=== PATIENT | female | born 1985 | race Caucasian/White ===

== ENCOUNTER 2016-07-24 02:53 | Emergency (ER) | payer OTHER ==
[2016-07-24] MEDS ORDERED: NITROGLYCERIN SL TABS 0.4 MG TAB SUBLINGUAL STA (03:38)
[2016-07-24] MEDS ORDERED: ASPIRIN 81 MG CHEW PO STA (03:38)
--- NOTE | 2016-07-24 03:49 | ED ---
Chest Pain HPI - General Chief Complaint: Chest Pain Stated Complaint: Chest Pain/Stomach Pain Time Seen by Provider: 07/24/16 03:19 Source: patient Mode of arrival: ambulatory Limitations: no limitations - History of Present Illness Initial Comments: This patient is 31-year-old woman who presents with epigastric and left chest pain which is been going on for over a month. The patient states that the pain initially was somewhat intermittent, but now has been constant. She describes it as moderate, aching, without relieving factors, and seems to be worse when she smokes cigarettes. MD Complaint: chest pain Onset/Timin -: month(s) Onset: during rest Pain Location: left chest, epigastric Pain Radiation: none Severity: moderate Quality: aching Consistency: constant Improves With: nothing Worsens With: other (smoking) Treatments Prior to Arrival: none - Related Data Previous Rx's Medication Instructions Recorded Famotidine [Pepcid] 20 mg PO DAILY #14 tablet 07/24/16 Allergies Allergy/AdvReac Type Severity Reaction Status Date / Time No Known Allergies Allergy Verified 07/24/16 03:12 Review of Systems ROS Statement: Those systems with pertinent positive or pertinent negative responses have been documented in the HPI. ROS Other: All systems not noted in ROS Statement are negative. Constitutional: Denies: fever, chills Respiratory: Reports: as per HPI. Denies: cough, dyspnea, wheezes, hemoptysis Cardiovascular: Reports: as per HPI, chest pain. Denies: palpitations, edema, syncope Gastrointestinal: Denies: abdominal pain, nausea, vomiting Genitourinary: Denies: dysuria, hematuria Skin: Denies: rash, lesions Neurological: Denies: headache, weakness, numbness EKG Findings - EKG Results: EKG: interpreted by AVILA SMARTL, sinus rhythm (Rate is 62 bpm), normal axis, normal QRS, normal ST/T, no acute changes - [place], Pacemaker, Normal: Normal tracing: normal tracing Past Medical History Past Medical History: No Reported History Additional Past Medical History / Comment(s): glaucoma hypoglycemic History of Any Multi-Drug Resistant Organisms: None Reported Past Surgical History: Ear Surgery Additional Past Surgical History / Comment(s): D&C x2 Past Psychological History: Anxiety, Bipolar, Depression Smoking Status: Current every day smoker Past Alcohol Use History: None Reported Past Drug Use History: Marijuana General Exam Limitations: no limitations General appearance: alert, in no apparent distress Head exam: Present: atraumatic, normocephalic Eye exam: Present: normal appearance. Absent: scleral icterus, conjunctival injection Neck exam: Present: normal inspection, full ROM Respiratory exam: Present: normal lung sounds bilaterally. Absent: respiratory distress, wheezes, rales, rhonchi, stridor Cardiovascular Exam: Present: regular rate, normal rhythm, normal heart sounds. Absent: systolic murmur, diastolic murmur, rubs, gallop GI/Abdominal exam: Present: soft, tenderness (Mild epigastric tenderness), normal bowel sounds. Absent: distended, guarding, rebound, rigid, mass, pulsatile mass, hernia Extremities exam: Present: normal inspection, normal capillary refill. Absent: pedal edema, calf tenderness Back exam: Present: normal inspection. Absent: CVA tenderness (R), CVA tenderness (L) Neurological exam: Present: alert Skin exam: Present: warm, dry, intact, normal color. Absent: rash, cyanosis, diaphoretic, erythema, petechiae, pallor, mottled Course Vital Signs 07/24/16 07/24/16 07/24/16 03:07 03:50 04:01 Temperature 97.5 F L Pulse Rate 77 79 Respiratory 18 18 Rate Blood Pressure 126/60 105/64 118/78 O2 Sat by Pulse 99 96 Oximetry 07/24/16 05:33 Temperature 98.2 F Pulse Rate 68 Respiratory 16 Rate Blood Pressure 105/66 O2 Sat by Pulse 99 Oximetry Disposition Clinical Impression: Chest pain, Esophagitis Disposition: HOME SELF-CARE Condition: Good Instructions: Chest Pain (ED), Esophagitis (ED) Prescriptions: Famotidine [Pepcid] 20 mg PO DAILY #14 tablet Referrals: Marcos Sheriff MD [Primary Care Provider] - 1-2 days Kaylin Stephen MD [STAFF PHYSICIAN] - 1-2 days Lili Pena MD [STAFF PHYSICIAN] - 1-2 days
--- NOTE | 2016-07-24 03:52 | XR ---
EXAM: XR Chest, 2 Views. CLINICAL HISTORY: Reason: Pain TECHNIQUE: Frontal and lateral views of the chest. COMPARISON: No relevant prior studies available. FINDINGS: Lungs: Unremarkable. No consolidation. Pleural spaces: Unremarkable. No pneumothorax. Heart: Unremarkable. No cardiomegaly. Mediastinum: Unremarkable. Bones: Unremarkable. No acute fracture. Other: Several EKG leads and wires overlie the chest. Of incidental note are bilateral nipple piercings. IMPRESSION: No acute findings.
[2016-07-24 04:11] LABS: Basophils # (A) 0.2 k/uL (0-0.2); Basophils % (A) 2 %; CH 31.3; CHCM 34.6; Eosinophils # (A) 0.2 k/uL (0-0.7); Eosinophils % (A) 3 %; HCT 38.8 % (34.0-46.0); HDW 2.19; HGB 13.2 gm/dL (11.4-16.0); Luc # (Auto) 0.13; Luc % (Auto) 2; Lymphocytes # (A) 2.7 k/uL (1.0-4.8); Lymphocytes % (A) 38 %; MCH 30.7 pg (25.0-35.0); MCHC 33.9 g/dL (31.0-37.0); MCV 90.8 fL (80.0-100.0); Mean Platelet Volume 10.5; Monocytes # (A) 0.4 k/uL (0-1.0); Monocytes % (A) 6 %; Neutrophils # (A) 3.5 k/uL (1.3-7.7); Neutrophils % (A) 50 %; RBC 4.28 m/uL (3.80-5.40); RDW 13.2 % (11.5-15.5); WBC 7.1 k/uL (3.8-10.6)
[2016-07-24 04:21] LABS: ALT 31 U/L (9-52); AST 15 U/L (14-36); Alkaline Phosphatase 63 U/L (38-126); Amylase <30 U/L (30-110); Anion Gap 11 mmol/L; Blood Urea Nitrogen 6 mg/dL (7-17); Calcium 9.3 mg/dL (8.4-10.2); Carbon Dioxide 24 mmol/L (22-30); Chloride 106 mmol/L (98-107); Glucose 95 mg/dL (74-99); Magnesium 2.1 mg/dL (1.6-2.3); Non-African American GFR(MDRD) >60 (>60 ml/min/1.73 sqM); Potassium 3.4 mmol/L (3.5-5.1); Sodium 141 mmol/L (137-145); Total Bilirubin 0.4 mg/dL (0.2-1.3)
[2016-07-24 04:45] LABS: Creatine Kinase 71 U/L (30-135)
[2016-07-24 04:57] LABS: Creatine Kinase MB <0.2 ng/mL (0.0-2.4); Troponin I <0.012 ng/mL (0.000-0.034)
[2016-07-24 05:38] VITALS: RESP 16
[2016-07-24] MEDS ORDERED: ONDANSETRON 4 MG/2 ML VIAL IVP STA (05:38)
[2016-07-24] MEDS ORDERED: MAG HYDROX/AL HYDROX/SIMETH 30 ML, HYOSCYAMINE ELIXIR 10 ML, CIMETIDINE HCL 300 MG, LID... PO STA ×4 (05:39)
[2016-07-24] MEDS ORDERED: ONDANSETRON ODT 4 MG TAB PO STA (06:46)
[2016-07-24 06:57] VITALS: BP 111/75; PULSE 64; TEMP 97.7
== END 2016-07-24 06:58 | disposition home or self-care (01) ==
LOC: EC 02:53
DX: K20.9 Esophagitis, unspecified (principal); F17.210 Nicotine dependence, cigarettes, uncomplicated
CPT/HCPCS: 36415; 93005; 85379; 80053; 82150; 82550; 82553; 83690; 83735; 84484; 85025; 71020; 99285; 96374; J2405

== ENCOUNTER 2016-10-06 17:24 | Emergency (ER) | payer OTHER ==
[2016-10-06 17:32] VITALS: BP 113/76; PULSE 98; RESP 18; TEMP 97.5
--- NOTE | 2016-10-06 17:37 | ED ---
Upper Extremity HPI - General Chief Complaint: Extremity Injury, Upper Stated Complaint: Hand Injury Time Seen by Provider: 10/06/16 17:28 Source: patient, RN notes reviewed Mode of arrival: ambulatory Limitations: no limitations - History of Present Illness Initial Comments: 31-year-old female presents to the emergency department with a chief complaint of right hand pain. Patient states that she punched a cement floor. Patient states she now has pain over her fifth finger. Patient denies any other injury from the incident. Patient states throbbing and it feels swollen. Patient states this happened last night. Patient states she was concerned due to her continued pain so she thought that she should be seen. Patient denies any recent fever, chills, shortness of breath, chest pain, back pain, abdominal pain , nausea vomiting, numbness or tingling, dysuria or hematuria, constipation or diarrhea, headaches or visual changes, or any other current symptoms. - Related Data Previous Rx's Medication Instructions Recorded Famotidine [Pepcid] 20 mg PO DAILY #14 tablet 07/24/16 Allergies Allergy/AdvReac Type Severity Reaction Status Date / Time No Known Allergies Allergy Verified 07/24/16 03:12 Review of Systems ROS Statement: Those systems with pertinent positive or pertinent negative responses have been documented in the HPI. ROS Other: All systems not noted in ROS Statement are negative. Past Medical History Past Medical History: No Reported History Additional Past Medical History / Comment(s): glaucoma hypoglycemic History of Any Multi-Drug Resistant Organisms: None Reported Past Surgical History: Ear Surgery Additional Past Surgical History / Comment(s): D&C x2 Past Psychological History: Anxiety, Bipolar, Depression Smoking Status: Current every day smoker Past Alcohol Use History: None Reported Past Drug Use History: Marijuana General Exam - General Exam Comments Initial Comments: General: The patient is awake and alert, in no distress, and does not appear acutely ill. Neck: The neck is supple, there is no tenderness . Cardiovascular: There is a regular rate and rhythm. No murmur, rub or gallop is appreciated. Respiratory: Lungs are clear to auscultation, respirations are non-labored, breath sounds are equal. No wheezes, stridor, rales, or rhonchi. Musculoskeletal: Sensation intact with 2+ pulses throughout the right upper extremity . Full range of motion of the right elbow and right wrist right hand. Patient does have some tenderness to the distal aspect of the fifth metacarpal. 5 out of 5 muscle strength testing. Some swelling noted to the distal fifth metacarpal. Neurological: CN II-XII intact, There are no obvious motor or sensory deficits. Coordination appears grossly intact. Speech is normal. Skin: Skin is warm and dry and no rashes or lesions are noted. Psychiatric: Normal mood and affect. Limitations: no limitations Course Vital Signs 10/06/16 17:27 Temperature 97.5 F L Pulse Rate 98 Respiratory 18 Rate Blood Pressure 113/76 O2 Sat by Pulse 98 Oximetry Medical Decision Making - Medical Decision Making 31-year-old female presents for right hand pain after punching the ground. This time x-ray does not show any acute fracture. We discussed ice Motrin Tylenol. We discussed return parameters and follow-up. We discussed the patient and his questions. He stated he understood the plan. They will be discharged home. - Radiology Data Radiology results: report reviewed, image reviewed Disposition Clinical Impression: Contusion of right hand Disposition: HOME SELF-CARE Condition: Stable Instructions: Contusion in Adults (ED) Additional Instructions: Please use medication as discussed. Please follow up with family doctor if symptoms have not improved over the next two days. Please return to the emergency room if your symptoms increase or worsen or for any other concerns. Referrals: Marcos Sheriff MD [Primary Care Provider] - 1-2 days Time of Disposition: 18:03
--- NOTE | 2016-10-06 18:00 | XR ---
EXAMINATION TYPE: XR hand complete RT DATE OF EXAM: 10/06/2016 5:47 PM COMPARISON: NONE HISTORY: Pain TECHNIQUE: 3 views FINDINGS: I see no fracture nor dislocation. Joint spaces are normal. Metacarpals are intact. There a re no erosions. IMPRESSION: Negative right hand exam.
== END 2016-10-06 18:13 | disposition home or self-care (01) ==
LOC: EC 17:24
DX: S60.221A Contusion of right hand, initial encounter (principal); F17.200 Nicotine dependence, unspecified, uncomplicated; W22.09XA Striking against other stationary object, initial encounter
CPT/HCPCS: 99283

== ENCOUNTER 2016-10-13 11:50 | Emergency (ER) | payer OTHER ==
[2016-10-13] MEDS ORDERED: SODIUM CHLORIDE 0.9% 1,000 ML IV STA ×3 (15:42→16:07)
[2016-10-13 16:06] LABS: Basophils # (A) 0.1 k/uL (0-0.2); Basophils % (A) 0 %; CH 31.6; Eosinophils # (A) 0.2 k/uL (0-0.7); Eosinophils % (A) 2 %; HCT 36.8 % (34.0-46.0); HDW 2.16; HGB 11.9 gm/dL (11.4-16.0); Luc # (Auto) 0.16; Luc % (Auto) 2; Lymphocytes # (A) 2.1 k/uL (1.0-4.8); Lymphocytes % (A) 21 %; MCH 31.1 pg (25.0-35.0); MCHC 32.4 g/dL (31.0-37.0); Mean Platelet Volume 8.8; Monocytes # (A) 0.5 k/uL (0-1.0); Monocytes % (A) 4 %; Neutrophils # (A) 7.4 k/uL (1.3-7.7); Neutrophils % (A) 71 %; RBC 3.83 m/uL (3.80-5.40); RDW 13.7 % (11.5-15.5); WBC 10.3 k/uL (3.8-10.6); WBC (Perox) 11.19
--- NOTE | 2016-10-13 16:07 | ED ---
General Adult HPI - General Chief complaint: Abdominal Pain Stated complaint: Spotting, cramping-9 wks preg Time Seen by Provider: 10/13/16 15:33 Source: patient Mode of arrival: ambulatory Limitations: no limitations - History of Present Illness Initial comments: Patient's 31-year-old female who presents emergency room today with a chief complaint of vaginal spotting. She does admit that she is approximately 9 weeks . 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 Patient does admit that she noticed some spotting yesterday. She states due to her history she was concerned and came here to the emergency room. Does admit to some abdominal cramping. Denies any other complaints or symptoms. Patient denies any recent fever, chills, shortness of breath, chest pain, back pain, nausea or vomiting, numbness or tingling, dysuria or hematuria , constipation or diarrhea, headaches or visual changes, or any other complaints. - Related Data Home Medications Medication Instructions Recorded Confirmed Pediatric Multivit Comb No.144 2 tab PO AC-SUPPER 10/13/16 10/13/16 [Children's Chewable Vitamin] Allergies Allergy/AdvReac Type Severity Reaction Status Date / Time No Known Allergies Allergy Verified 10/13/16 15:40 Review of Systems ROS Statement: Those systems with pertinent positive or pertinent negative responses have been documented in the HPI. ROS Other: All systems not noted in ROS Statement are negative. Past Medical History Past Medical History: No Reported History Additional Past Medical History / Comment(s): glaucoma hypoglycemic History of Any Multi-Drug Resistant Organisms: None Reported Past Surgical History: Ear Surgery Additional Past Surgical History / Comment(s): D&C x2 Past Psychological History: Anxiety, Bipolar, Depression Smoking Status: Current every day smoker Past Alcohol Use History: None Reported Past Drug Use History: Marijuana General Exam - General Exam Comments Initial Comments: General: The patient is awake and alert, in no distress, and does not appear acutely ill. Eye: Pupils are equal, round and reactive to light, extra-ocular movements are intact. No nystagmus. There is normal conjunctiva bilaterally. No signs of icterus. Ears, nose, mouth and throat: There are moist mucous membranes and no oral lesions. Neck: The neck is supple, there is no tenderness or JVD. Cardiovascular: There is a regular rate and rhythm. No murmur, rub or gallop is appreciated. Respiratory: Lungs are clear to auscultation, respirations are non-labored, breath sounds are equal. No wheezes, stridor, rales, or rhonchi. Gastrointestinal: Soft, non-distended, non-tender abdomen without masses or organomegaly noted. There is no rebound or guarding present. No CVA tenderness. Bowel sounds are unremarkable. Musculoskeletal: Normal ROM, no tenderness. Strength 5/5. Sensation intact. Pulses equal bilaterally 2+. Neurological: A&O x 3. CN II-XII intact, There are no obvious motor or sensory deficits. Coordination appears grossly intact. Speech is normal. Skin: Skin is warm and dry and no rashes or lesions are noted. Psychiatric: Cooperative, appropriate mood & affect, normal judgment. Limitations: no limitations Course Vital Signs 10/13/16 11:58 Temperature 97.6 F Pulse Rate 119 H Respiratory 18 Rate Blood Pressure 120/73 O2 Sat by Pulse 100 Oximetry Medical Decision Making - Medical Decision Making Patient's ultrasound does show a single IUP measuring 8 weeks 2 days. Adnexa within normal limits. Patient's labs been reviewed. . Beta-hCG currently pending. Patient resting comfortably. Abdomen soft nontender. Patient will be discharged home advised follow-up for SENIOR CONTROL SYSTEMS ENGINEER over the next 2 days. Advised return if any symptoms increase worsen or for any other concerns. - Lab Data Result diagrams: 10/13/16 15:54 10/13/16 15:54 Lab Results 10/13/16 10/13/16 10/13/16 Range/Units 15:53 15:54 15:54 WBC 10.3 (3.8-10.6) k/uL RBC 3.83 (3.80-5.40) m/uL Hgb 11.9 (11.4-16.0) gm/dL Hct 36.8 (34.0-46.0) % MCV 96.0 (80.0-100.0) fL MCH 31.1 (25.0-35.0) pg MCHC 32.4 (31.0-37.0) g/dL RDW 13.7 (11.5-15.5) % Plt Count 228 (150-450) k/uL Neutrophils % 71 % Lymphocytes % 21 % Monocytes % 4 % Eosinophils % 2 % Basophils % 0 % Neutrophils # 7.4 (1.3-7.7) k/uL Lymphocytes # 2.1 (1.0-4.8) k/uL Monocytes # 0.5 (0-1.0) k/uL Eosinophils # 0.2 (0-0.7) k/uL Basophils # 0.1 (0-0.2) k/uL Sodium 137 (137-145) mmol/L Potassium 3.9 (3.5-5.1) mmol/L Chloride 103 (98-107) mmol/L Carbon Dioxide 26 (22-30) mmol/L Anion Gap 8 mmol/L BUN 8 (7-17) mg/dL Creatinine 0.50 L (0.52-1.04) mg/dL Est GFR (MDRD) Af Amer >60 (>60 ml/min/1.73 sqM) Est GFR (MDRD) Non-Af >60 (>60 ml/min/1.73 sqM) Glucose 78 (74-99) mg/dL Calcium 9.2 (8.4-10.2) mg/dL Total Bilirubin 0.3 (0.2-1.3) mg/dL AST 20 (14-36) U/L ALT 29 (9-52) U/L Alkaline Phosphatase 59 (38-126) U/L Total Protein 6.9 (6.3-8.2) g/dL Albumin 4.3 (3.5-5.0) g/dL Urine Color Urine Appearance (Clear) Urine pH (5.0-8.0) Ur Specific [place] (1.001-1.035) Urine Protein (Negative) Urine Glucose (UA) (Negative) Urine Ketones (Negative) Urine Blood (Negative) Urine Nitrite (Negative) Urine Bilirubin (Negative) Urine Urobilinogen (<2.0) mg/dL Ur Leukocyte Esterase (Negative) Urine RBC (0-5) /hpf Urine WBC (0-5) /hpf Ur Squamous Epith Cells (0-4) /hpf Hyaline Casts (0-2) /lpf Urine Mucus (None) /hpf Blood Type O Positive Blood Type Recheck O Pos 10/13/16 Range/Units 15:54 WBC (3.8-10.6) k/uL RBC (3.80-5.40) m/uL Hgb (11.4-16.0) gm/dL Hct (34.0-46.0) % MCV (80.0-100.0) fL MCH (25.0-35.0) pg MCHC (31.0-37.0) g/dL RDW (11.5-15.5) % Plt Count (150-450) k/uL Neutrophils % % Lymphocytes % % Monocytes % % Eosinophils % % Basophils % % Neutrophils # (1.3-7.7) k/uL Lymphocytes # (1.0-4.8) k/uL Monocytes # (0-1.0) k/uL Eosinophils # (0-0.7) k/uL Basophils # (0-0.2) k/uL Sodium (137-145) mmol/L Potassium (3.5-5.1) mmol/L Chloride (98-107) mmol/L Carbon Dioxide (22-30) mmol/L Anion Gap mmol/L BUN (7-17) mg/dL Creatinine (0.52-1.04) mg/dL Est GFR (MDRD) Af Amer (>60 ml/min/1.73 sqM) Est GFR (MDRD) Non-Af (>60 ml/min/1.73 sqM) Glucose (74-99) mg/dL Calcium (8.4-10.2) mg/dL Total Bilirubin (0.2-1.3) mg/dL AST (14-36) U/L ALT (9-52) U/L Alkaline Phosphatase (38-126) U/L Total Protein (6.3-8.2) g/dL Albumin (3.5-5.0) g/dL Urine Color Yellow Urine Appearance Cloudy H (Clear) Urine pH 6.5 (5.0-8.0) Ur Specific [place] 1.022 (1.001-1.035) Urine Protein Trace H (Negative) Urine Glucose (UA) Negative (Negative) Urine Ketones Negative (Negative) Urine Blood Negative (Negative) Urine Nitrite Negative (Negative) Urine Bilirubin Negative (Negative) Urine Urobilinogen <2.0 (<2.0) mg/dL Ur Leukocyte Esterase Moderate H (Negative) Urine RBC <1 (0-5) /hpf Urine WBC 5 (0-5) /hpf Ur Squamous Epith Cells 15 H (0-4) /hpf Hyaline Casts 2 (0-2) /lpf Urine Mucus Many H (None) /hpf Blood Type Blood Type Recheck Disposition Clinical Impression: Threatened Disposition: HOME SELF-CARE Condition: Good Instructions: Threatened Miscarriage (ED) Additional Instructions: Please use medication as discussed. Please follow-up with family doctor /OB/ GENERAL UTILITY MAINTENANCE REPAIRER in the next 2 days of symptoms have not improved. Please return to emergency room if the symptoms increase or worsen or for any other concerns. Referrals: Marcos Sheriff MD [Primary Care Provider] - 1-2 days Time of Disposition: 17:05
[2016-10-13 16:14] LABS: Appearance,Urine Cloudy (Clear); Bilirubin,Urine Negative (Negative); Glucose,Urine (UA) Negative (Negative); Ketones,Urine Negative (Negative); Leukocyte Esterase,Urine Moderate (Negative); Mucus,Urine Many /hpf; Nitrite,Urine Negative (Negative); PH, Urine 6.5 (5.0-8.0); Particle Count 6505; Protein,Urine Trace (Negative); RBC,Urine <1 /hpf (0-5); Specific Gravity,Urine 1.022 (1.001-1.035); Squamous Epithelial Cell,Urine 15 /hpf (0-4); UA Billing (MACRO vs. MICRO) MICRO; Urobilinogen,Urine <2.0 mg/dL (<2.0); WBC,Urine 5 /hpf (0-5)
[2016-10-13 16:18] LABS: ALT 29 U/L (9-52); AST 20 U/L (14-36); Alkaline Phosphatase 59 U/L (38-126); Anion Gap 8 mmol/L; Blood Urea Nitrogen 8 mg/dL (7-17); Calcium 9.2 mg/dL (8.4-10.2); Carbon Dioxide 26 mmol/L (22-30); Chloride 103 mmol/L (98-107); Glucose 78 mg/dL (74-99); Non-African American GFR(MDRD) >60 (>60 ml/min/1.73 sqM); Potassium 3.9 mmol/L (3.5-5.1); Sodium 137 mmol/L (137-145); Total Bilirubin 0.3 mg/dL (0.2-1.3); Total Protein 6.9 g/dL (6.3-8.2)
--- NOTE | 2016-10-13 16:48 | US ---
EXAMINATION TYPE: US OB <= 14 wk fetus DATE OF EXAM: 10/13/2016 4:33 PM COMPARISON: NONE CLINICAL HISTORY: Pain. EXAM PERFORMED: Transabdominal (TA) EXAM MEASUREMENTS: GESTATIONAL AGE / DATING Physician Established: (not yet established Dates by LMP: unknown Dates by First Scan: 1st scan today Dates by Current Scan for: (8 weeks/2 days) EDC: 05/23/17 MATERNAL ANATOMY Uterus: 12.3 x 7.9 x 9.4cm Right Ovary: 3.4 x 1.8 x 1.8cm Left Ovary: not visualized due to peristalsing bowel in left adnexa Post CDS / Adnexa: wnl Presence of free fluid: no GESTATION / SURVEY CRL: 1.8 (8 weeks/2 days) Yolk Sac (normal less than 6mm): 3mm Heart Rate: 175 bpm Rhythm: Normal IUP: Viable IUP Date of LMP: not known Beta HcG (if available): not available IMPRESSION: Normal intrauterine .
[2016-10-13 17:33] VITALS: BP 120/80; PULSE 78; RESP 16; TEMP 97.8
== END 2016-10-13 17:32 | disposition home or self-care (01) ==
LOC: EC 11:50
DX: O20.0 Threatened abortion (principal); O99.331 Smoking (tobacco) complicating pregnancy, first trimester; F17.200 Nicotine dependence, unspecified, uncomplicated; Z3A.08 8 weeks gestation of pregnancy
CPT/HCPCS: 36415; 76801; 80053; 81001; 84702; 85025; 86900; 86901; 87086; 96360; 99284

== ENCOUNTER 2016-12-11 06:57 | Emergency (ER) | payer OTHER ==
[2016-12-11 08:17] LABS: Appearance,Urine Cloudy (Clear); Bacteria,Urine Rare /hpf; Bilirubin,Urine Negative (Negative); Glucose,Urine (UA) Negative (Negative); Ketones,Urine Negative (Negative); Leukocyte Esterase,Urine Large (Negative); Mucus,Urine Moderate /hpf; Nitrite,Urine Negative (Negative); Particle Count 23063; Protein,Urine Trace (Negative); RBC,Urine 5 /hpf (0-5); Specific Gravity,Urine 1.016 (1.001-1.035); Squamous Epithelial Cell,Urine 39 /hpf (0-4); UA Billing (MACRO vs. MICRO) MICRO; Urobilinogen,Urine <2.0 mg/dL (<2.0); WBC,Urine 5 /hpf (0-5)
[2016-12-11 08:45] LABS: Basophils % (A) 0 %; CH 30.7; CHCM 34.3; Eosinophils # (A) 0.2 k/uL (0-0.7); Eosinophils % (A) 1 %; HCT 31.4 % (34.0-46.0); HDW 2.48; HGB 10.9 gm/dL (11.4-16.0); Luc # (Auto) 0.11; Luc % (Auto) 1; Lymphocytes # (A) 2.1 k/uL (1.0-4.8); Lymphocytes % (A) 17 %; MCH 31.1 pg (25.0-35.0); MCHC 34.6 g/dL (31.0-37.0); Mean Platelet Volume 10.5; Monocytes # (A) 0.4 k/uL (0-1.0); Monocytes % (A) 3 %; Neutrophils # (A) 9.5 k/uL (1.3-7.7); Neutrophils % (A) 77 %; RBC 3.49 m/uL (3.80-5.40); WBC 12.3 k/uL (3.8-10.6); WBC (Perox) 12.01
--- NOTE | 2016-12-11 08:48 | ED ---
Female Urogenital HPI - General Chief complaint: Vaginal Bleeding Stated complaint: bleeding,cramping,16 weeks preg Time Seen by Provider: 12/11/16 07:30 Source: patient, RN notes reviewed Mode of arrival: ambulatory Limitations: no limitations - History of Present Illness Initial comments: This is a 31-year-old female who is 10 para 3 AB 6 is currently about 16 weeks who states she had the onset this morning of some vaginal bleeding with abdominal cramping that felt like a bed. She states it is since settled down she does states she's been under last stress recently she denies any fevers chills sweats nausea vomiting or other symptoms at this time. Patient does states she has not had intercourse for quite a while MD Complaint: vaginal bleeding - Related Data Home Medications Medication Instructions Recorded Confirmed Pediatric Multivitamin No.144 2 tab PO DAILY 10/13/16 12/11/16 [Children's Chewable Vitamin] Allergies Allergy/AdvReac Type Severity Reaction Status Date / Time No Known Allergies Allergy Verified 12/11/16 08:16 Review of Systems ROS Statement: Those systems with pertinent positive or pertinent negative responses have been documented in the HPI. ROS Other: All systems not noted in ROS Statement are negative. Past Medical History Past Medical History: No Reported History Additional Past Medical History / Comment(s): glaucoma hypoglycemic History of Any Multi-Drug Resistant Organisms: None Reported Past Surgical History: Ear Surgery Additional Past Surgical History / Comment(s): D&C x2 Past Psychological History: Anxiety, Bipolar, Depression Smoking Status: Current every day smoker Past Alcohol Use History: None Reported Past Drug Use History: None Reported General Exam - General Exam Comments Initial Comments: This is a well-developed well-nourished awake alert oriented 3 female Limitations: no limitations General appearance: alert, in no apparent distress Head exam: Present: atraumatic, normocephalic, normal inspection Eye exam: Present: normal appearance, PERRL, EOMI. Absent: scleral icterus, conjunctival injection, periorbital swelling ENT exam: Present: normal exam, mucous membranes moist Neck exam: Present: normal inspection. Absent: tenderness, meningismus, lymphadenopathy Respiratory exam: Present: normal lung sounds bilaterally Cardiovascular Exam: Present: regular rate, normal rhythm, normal heart sounds. Absent: systolic murmur, diastolic murmur, rubs, gallop, clicks GI/Abdominal exam: Present: tenderness Rectal exam: Present: normal inspection External exam: Present: other (Pelvic exam done with a female nurse present reveals mucoid discharge no gross bleeding at this time there are 2 small areas on the superior cervix is mildly erythematous. The os is closed. No CMT) Extremities exam: Present: normal inspection, full ROM, normal capillary refill. Absent: tenderness, pedal edema, joint swelling, calf tenderness Back exam: Present: full ROM Neurological exam: Present: alert, oriented X3, CN II-XII intact Psychiatric exam: Present: normal affect, normal mood Skin exam: Present: warm, dry, intact, normal color. Absent: rash Course Vital Signs 12/11/16 12/11/16 07:00 09:33 Temperature 98.0 F Pulse Rate 90 80 Respiratory 18 18 Rate Blood Pressure 132/64 107/57 O2 Sat by Pulse 100 98 Oximetry Medical Decision Making - Medical Decision Making I did discuss findings with the patient she is asymptomatic this time she will follow-up with her ALLERGIST/IMMUNOLOGIST and return when necessary - Lab Data Result diagrams: 12/11/16 08:02 Lab Results 12/11/16 12/11/16 12/11/16 Range/Units 07:43 08:02 08:02 WBC 12.3 H (3.8-10.6) k/uL RBC 3.49 L (3.80-5.40) m/uL Hgb 10.9 L (11.4-16.0) gm/dL Hct 31.4 L (34.0-46.0) % MCV 90.0 D (80.0-100.0) fL MCH 31.1 (25.0-35.0) pg MCHC 34.6 (31.0-37.0) g/dL RDW 14.0 (11.5-15.5) % Plt Count 165 (150-450) k/uL Neutrophils % 77 % Lymphocytes % 17 % Monocytes % 3 % Eosinophils % 1 % Basophils % 0 % Neutrophils # 9.5 H (1.3-7.7) k/uL Lymphocytes # 2.1 (1.0-4.8) k/uL Monocytes # 0.4 (0-1.0) k/uL Eosinophils # 0.2 (0-0.7) k/uL Basophils # 0.0 (0-0.2) k/uL HCG, Quant mIU/mL Urine Color Yellow Urine Appearance Cloudy H (Clear) Urine pH 6.0 (5.0-8.0) Ur Specific [place] 1.016 (1.001-1.035) Urine Protein Trace H (Negative) Urine Glucose (UA) Negative (Negative) Urine Ketones Negative (Negative) Urine Blood Negative (Negative) Urine Nitrite Negative (Negative) Urine Bilirubin Negative (Negative) Urine Urobilinogen <2.0 (<2.0) mg/dL Ur Leukocyte Esterase Large H (Negative) Urine RBC 5 (0-5) /hpf Urine WBC 5 (0-5) /hpf Ur Squamous Epith Cells 39 H (0-4) /hpf Urine Bacteria Rare H (None) /hpf Urine Mucus Moderate H (None) /hpf Trichomonas Ag (Rapid) (Negative) Blood Type O Positive Blood Type Recheck No 12/11/16 12/11/16 Range/Units 08:02 08:02 WBC (3.8-10.6) k/uL RBC (3.80-5.40) m/uL Hgb (11.4-16.0) gm/dL Hct (34.0-46.0) % MCV (80.0-100.0) fL MCH (25.0-35.0) pg MCHC (31.0-37.0) g/dL RDW (11.5-15.5) % Plt Count (150-450) k/uL Neutrophils % % Lymphocytes % % Monocytes % % Eosinophils % % Basophils % % Neutrophils # (1.3-7.7) k/uL Lymphocytes # (1.0-4.8) k/uL Monocytes # (0-1.0) k/uL Eosinophils # (0-0.7) k/uL Basophils # (0-0.2) k/uL HCG, Quant 21525.0 mIU/mL Urine Color Urine Appearance (Clear) Urine pH (5.0-8.0) Ur Specific [place] (1.001-1.035) Urine Protein (Negative) Urine Glucose (UA) (Negative) Urine Ketones (Negative) Urine Blood (Negative) Urine Nitrite (Negative) Urine Bilirubin (Negative) Urine Urobilinogen (<2.0) mg/dL Ur Leukocyte Esterase (Negative) Urine RBC (0-5) /hpf Urine WBC (0-5) /hpf Ur Squamous Epith Cells (0-4) /hpf Urine Bacteria (None) /hpf Urine Mucus (None) /hpf Trichomonas Ag (Rapid) Negative (Negative) Blood Type Blood Type Recheck - Radiology Data Radiology results: report reviewed (Review the ultrasound shows a single living IUP 17 weeks 2 days. A few hive blow a Coke areas on the surface of the placenta measuring up to 3.2 cm areas of pre-placental hemorrhage/abruption or considered prominent venous legs are alternative possibility no retroplacental hemorrhage is seen), image reviewed Disposition Clinical Impression: Intrauterine , Abdominal pain Disposition: HOME SELF-CARE Condition: Good Instructions: Abdominal Pain in (ED) Referrals: Marcos Sheriff MD [Primary Care Provider] - 1-2 days
--- NOTE | 2016-12-11 10:00 | US ---
EXAMINATION TYPE: US OB >= 14 wk fetus DATE OF EXAM: 12/11/2016 COMPARISON: 10/13/2016 CLINICAL HISTORY: 31-year-old female Pain, spotting last night, cramping TECHNIQUE: Transabdominal (TA) FINDINGS: GESTATIONAL AGE / DATING Physician Established: (16 weeks/5 days) EDC: 05/23/2017 Dates by Current Scan: (17 weeks/2 days) EDC: 05/19/2017 SURVEY IUP: Single PLACENTA: Anterior. A few hypoechoic lesions seen in placenta, largest measuring = 3.2 x 1.0 x 0.6 c m. PREVIA: No Previa LANG: 12.7 cm Normal CERVICAL LENGTH (transabdominal: norm > 3.0cm): 3.8 cm BIOMETRY PRESENTATION: Breech BPD: 3.9 cm 17 weeks / 6 days HC: 13.9 cm 17 weeks / 2 days AC: 12.2 cm 17 weeks / 6 days FL: 2.2 cm 16 weeks / 4 days ESTIMATED WEIGHT IN GRAMS: 188.1 grams ESTIMATED WEIGHT IN LBS/OZS: 0 lbs. 7 oz. WEIGHT PERCENTAGE BASED ON ESTABLISHED DATES: 79.3% HC/AC: 1.2 Normal FL/AC: 18.2 HEART RATE: 136 bpm RHYTHM: Normal [employer] NOTES: Live single IUP measuring 16 weeks 5 days. A few hypoechoic lesions seen in placen ta, largest measuring = 3.2 x 1.0 x 0.6 cm IMPRESSION: 1. Single live intrauterine with established gestational age of 16 weeks 5 days by prior da ting ultrasound. Current ultrasound biometry is concordant (17 weeks 2 days) placing the child at the 79th percentile for weight. 2. A few hypoechoic areas along the surface of the placenta measuring up to 3.2 cm. Areas of preplace ntal hemorrhage/abruption are considered given the patient's symptoms. Prominent venous lakes are an alternative possibility. Chorioangiomas considered less likely. Short interval follow-up recommended. No retroplacental hemorrhage is seen.
[2016-12-11 10:30] VITALS: BP 106/57; PULSE 81; RESP 16; TEMP 97.4
== END 2016-12-11 10:46 | disposition home or self-care (01) ==
LOC: EC 06:57
DX: O20.9 Hemorrhage in early pregnancy, unspecified (principal); O99.89 Other specified diseases and conditions complicating pregnancy, childbirth and the puerperium; R10.9 Unspecified abdominal pain; O99.332 Smoking (tobacco) complicating pregnancy, second trimester; F17.200 Nicotine dependence, unspecified, uncomplicated; Z79.899 Other long term (current) drug therapy; Z3A.17 17 weeks gestation of pregnancy
CPT/HCPCS: 36415; 76805; 81001; 84702; 85025; 86900; 86901; 87070; 87205; 87491; 87591; 87808; 99284

== ENCOUNTER 2016-12-29 18:59 | Emergency (ER) | payer OTHER ==
[2016-12-29 19:10] VITALS: RESP 18
[2016-12-29] MEDS ORDERED: SODIUM CHLORIDE 0.9% 1,000 ML IV ONE (19:42)
--- NOTE | 2016-12-29 19:50 | ED ---
General Adult HPI - General Chief complaint: Dizziness Stated complaint: 19 weeks /low sugar? Time Seen by Provider: 12/29/16 19:28 Source: patient, RN notes reviewed Mode of arrival: ambulatory Limitations: no limitations - History of Present Illness Initial comments: Patient is a 31-year-old female presents to the emergency room for evaluation of dizziness. Patient states that 19 weeks . Patient states while standing at work today she felt very dizzy and lightheaded and nauseous. Patient states after sitting down for a while she felt better but thought she should be evaluated. Patient also states during the incident she is having some minor chest pain. Patient does state that she's had similar incidences like this while she was . Patient denies any current nausea or chest pain. Patient states she still having a slight headache. Patient also states that her 3-year-old daughter jumped on her stomach a few days ago and started having continuing pain and has not been feeling the baby move as much as usual. Patient denies vaginal bleeding. Patient denies any burning during urination , trouble urinating or blood in urine. - Related Data Home Medications Medication Instructions Recorded Confirmed Pedi Multivit No.25/Folic Acid 2 tab PO DAILY 12/29/16 12/29/16 [Flintstones Multivit Chew Tab] Allergies Allergy/AdvReac Type Severity Reaction Status Date / Time No Known Allergies Allergy Verified 12/29/16 19:32 Review of Systems ROS Statement: Those systems with pertinent positive or pertinent negative responses have been documented in the HPI. ROS Other: All systems not noted in ROS Statement are negative. Past Medical History Past Medical History: No Reported History Additional Past Medical History / Comment(s): glaucoma, hypoglycemic History of Any Multi-Drug Resistant Organisms: None Reported Past Surgical History: Ear Surgery Additional Past Surgical History / Comment(s): D&C x2 Past Psychological History: Anxiety, Bipolar, Depression Smoking Status: Current every day smoker Past Alcohol Use History: None Reported Past Drug Use History: None Reported General Exam - General Exam Comments Initial Comments: Sitting in exam room, no acute distress. Limitations: no limitations General appearance: alert, in no apparent distress Head exam: Present: atraumatic, normocephalic, normal inspection Eye exam: Present: normal appearance ENT exam: Present: normal exam Neck exam: Present: normal inspection Respiratory exam: Present: normal lung sounds bilaterally. Absent: respiratory distress Cardiovascular Exam: Present: regular rate, normal rhythm, normal heart sounds GI/Abdominal exam: Present: soft. Absent: tenderness Extremities exam: Present: normal inspection Back exam: Present: normal inspection Neurological exam: Present: alert, oriented X3, CN II-XII intact Psychiatric exam: Present: normal affect, normal mood Skin exam: Present: warm, dry, intact, normal color. Absent: rash Course Vital Signs 12/29/16 12/29/16 19:06 22:14 Temperature 97.0 F L 97.9 F Pulse Rate 95 85 Respiratory 18 18 Rate Blood Pressure 116/72 111/55 O2 Sat by Pulse 100 100 Oximetry EKG Findings - EKG Comments: EKG Findings:: normal sinus rhythm, ventricular rate 85 bpm, WA interval 154 ms , QRS duration 70 ms, QT/QTC 358/426 seconds Medical Decision Making - Medical Decision Making patient is a 31-year-old female since emergency room for evaluation of dizziness. Patient states she is approximately 19 weeks . Patient also complaining of abdominal pain. Potassium slightly low. Patient given k- dur. Ultrasound shows no abnormal findings. Patient states she is feeling better. Advised patient to follow-up with her INVESTMENT SPECIALIST or primary care provider in 24-48 hours. Patient states she understands everything that was discussed with her. Return parameters discussed. Case discussed with Dr. Pruitt. - Lab Data Result diagrams: 12/29/16 19:49 12/29/16 19:49 Lab Results 12/29/16 12/29/16 12/29/16 Range/Units 19:49 19:49 19:49 WBC 11.2 H (3.8-10.6) k/uL RBC 3.70 L (3.80-5.40) m/uL Hgb 11.4 (11.4-16.0) gm/dL Hct 34.2 (34.0-46.0) % MCV 92.3 (80.0-100.0) fL MCH 30.9 (25.0-35.0) pg MCHC 33.5 (31.0-37.0) g/dL RDW 14.4 (11.5-15.5) % Plt Count 176 (150-450) k/uL Neutrophils % 75 % Lymphocytes % 20 % Monocytes % 3 % Eosinophils % 1 % Basophils % 0 % Neutrophils # 8.4 H (1.3-7.7) k/uL Lymphocytes # 2.2 (1.0-4.8) k/uL Monocytes # 0.4 (0-1.0) k/uL Eosinophils # 0.1 (0-0.7) k/uL Basophils # 0.0 (0-0.2) k/uL Sodium 138 (137-145) mmol/L Potassium 3.2 L (3.5-5.1) mmol/L Chloride 104 (98-107) mmol/L Carbon Dioxide 23 (22-30) mmol/L Anion Gap 11 mmol/L BUN 7 (7-17) mg/dL Creatinine 0.48 L (0.52-1.04) mg/dL Est GFR (MDRD) Af Amer >60 (>60 ml/min/1.73 sqM) Est GFR (MDRD) Non-Af >60 (>60 ml/min/1.73 sqM) Glucose 122 H (74-99) mg/dL Calcium 9.2 (8.4-10.2) mg/dL Total Bilirubin 0.1 L (0.2-1.3) mg/dL AST 17 (14-36) U/L ALT 22 (9-52) U/L Alkaline Phosphatase 69 (38-126) U/L Total Protein 6.9 (6.3-8.2) g/dL Albumin 4.0 (3.5-5.0) g/dL Urine Color Yellow Urine Appearance Clear (Clear) Urine pH 6.5 (5.0-8.0) Ur Specific [place] 1.009 (1.001-1.035) Urine Protein Negative (Negative) Urine Glucose (UA) Negative (Negative) Urine Ketones Negative (Negative) Urine Blood Negative (Negative) Urine Nitrite Negative (Negative) Urine Bilirubin Negative (Negative) Urine Urobilinogen <2.0 (<2.0) mg/dL Ur Leukocyte Esterase Negative (Negative) - Radiology Data Radiology results: report reviewed, image reviewed Disposition Clinical Impression: Dizziness, Abdominal pain affecting , Hypokalemia Disposition: HOME SELF-CARE Condition: Good Instructions: Abdominal Pain in (ED), Dizziness (ED) Additional Instructions: Drink plenty of water. Please follow up with INVESTMENT SPECIALIST in 1-2 days. If any new symptom arises or symptoms worsen, return to ER as soon as possible. Referrals: Marcos Sherfif MD [Primary Care Provider] - 1-2 days Sam Negron MD [STAFF PHYSICIAN] - 1-2 days Time of Disposition: 21:47
[2016-12-29 20:11] LABS: Basophils % (A) 0 %; CH 31.1; CHCM 33.9; Eosinophils # (A) 0.1 k/uL (0-0.7); Eosinophils % (A) 1 %; HCT 34.2 % (34.0-46.0); HDW 2.38; HGB 11.4 gm/dL (11.4-16.0); Large Platelets Flag Slight; Luc # (Auto) 0.11; Luc % (Auto) 1; Lymphocytes # (A) 2.2 k/uL (1.0-4.8); Lymphocytes % (A) 20 %; MCH 30.9 pg (25.0-35.0); MCHC 33.5 g/dL (31.0-37.0); MCV 92.3 fL (80.0-100.0); Mean Platelet Volume 11.7; Monocytes # (A) 0.4 k/uL (0-1.0); Monocytes % (A) 3 %; Neutrophils # (A) 8.4 k/uL (1.3-7.7); Neutrophils % (A) 75 %; RDW 14.4 % (11.5-15.5); WBC 11.2 k/uL (3.8-10.6); WBC (Perox) 11.62
[2016-12-29 20:13] LABS: Appearance,Urine Clear (Clear); Bilirubin,Urine Negative (Negative); Glucose,Urine (UA) Negative (Negative); Ketones,Urine Negative (Negative); Leukocyte Esterase,Urine Negative (Negative); Nitrite,Urine Negative (Negative); PH, Urine 6.5 (5.0-8.0); Protein,Urine Negative (Negative); Specific Gravity,Urine 1.009 (1.001-1.035); UA Billing (MACRO vs. MICRO) CHEM; Urobilinogen,Urine <2.0 mg/dL (<2.0)
[2016-12-29 20:24] LABS: ALT 22 U/L (9-52); AST 17 U/L (14-36); Alkaline Phosphatase 69 U/L (38-126); Anion Gap 11 mmol/L; Blood Urea Nitrogen 7 mg/dL (7-17); Calcium 9.2 mg/dL (8.4-10.2); Carbon Dioxide 23 mmol/L (22-30); Chloride 104 mmol/L (98-107); Glucose 122 mg/dL (74-99); Non-African American GFR(MDRD) >60 (>60 ml/min/1.73 sqM); Potassium 3.2 mmol/L (3.5-5.1); Sodium 138 mmol/L (137-145); Total Bilirubin 0.1 mg/dL (0.2-1.3); Total Protein 6.9 g/dL (6.3-8.2)
--- NOTE | 2016-12-29 20:56 | US ---
EXAMINATION TYPE: US OB >= 14 wk fetus DATE OF EXAM: 12/29/2016 COMPARISON: Prior in PACS CLINICAL HISTORY: Pain TECHNIQUE: Transabdominal (TA) GESTATIONAL AGE / DATING Physician Established: (19 weeks/2 days) EDC: 05/23/2017 Dates by LMP: (19 weeks/2 days) EDC: 05/23/2017 Dates by First Scan: (19 weeks/2 days) EDC: 05/23/2017 Dates by Current Scan: (19 weeks/6 days) EDC: 05/19/2017 SURVEY IUP: Single PLACENTA: Anterior PREVIA: No Previa LANG: 13.6 cm Normal CERVICAL LENGTH (transabdominal: norm > 3.0cm): 3.6 cm BIOMETRY PRESENTATION: Vertex LIE: Longitudinal BPD: 4.7 cm 20 weeks / 3 days HC: 17.7 cm 20 weeks / 2 days AC: 14.8 cm 20 weeks / 1 days FL: 3.0 cm 19 weeks / 4 days ESTIMATED WEIGHT IN GRAMS: 320.0 grams ESTIMATED WEIGHT IN LBS/OZS: 0 lbs. 11 oz. WEIGHT PERCENTAGE BASED ON ESTABLISHED DATES: 80.6% HC/AC: 1.19 Normal FL/AC: 20.63 Normal HEART RATE: 143 bpm RHYTHM: Normal Viable IUP, measurements congruent with dates. Avascular, hypoechoic area visualized within the place nta as seen on last exam measuring 3.5 x 0.6 x 3.3 cm. The placental edges have a rounded appearance, possible circumvallate placenta vs other IMPRESSION: There is satisfactory growth compared to old exam of 10/13/2016. Small placental elongated fluid collection of doubtful significance. Normal amniotic fluid. No sign of placental abruption.
[2016-12-29] MEDS ORDERED: POTASSIUM CHLORIDE ER 20 MEQ TAB.ER PO STA (21:34)
[2016-12-29 22:21] VITALS: BP 111/55; PULSE 85; TEMP 97.9
== END 2016-12-29 22:14 | disposition home or self-care (01) ==
LOC: EC 18:59
DX: O99.282 Endocrine, nutritional and metabolic diseases complicating pregnancy, second trimester (principal); E87.6 Hypokalemia; O26.892 Other specified pregnancy related conditions, second trimester; R10.9 Unspecified abdominal pain; O99.89 Other specified diseases and conditions complicating pregnancy, childbirth and the puerperium; R42 Dizziness and giddiness; R11.0 Nausea; R07.9 Chest pain, unspecified; R51 Headache; O99.332 Smoking (tobacco) complicating pregnancy, second trimester; F17.200 Nicotine dependence, unspecified, uncomplicated; Z79.899 Other long term (current) drug therapy; Z3A.19 19 weeks gestation of pregnancy
CPT/HCPCS: 36415; 76805; 80053; 81003; 85025; 93005; 96360; 99284

== ENCOUNTER → 2017-01-01 | Outpatient (CLI) | payer OTHER ==
--- NOTE | 2017-01-01 11:16 | US ---
EXAMINATION TYPE: US OB anatomy transabd DATE OF EXAM: 01/01/2017 COMPARISON: Pelvic ultrasound dated 12/29/2016. HISTORY: Tobacco smoking complicating O99.332 TECHNIQUE: Abdominal EXAM MEASUREMENTS: GESTATIONAL AGE / DATING Physician Established: (19 weeks/5 days) EDC: 05/23/17 Dates by LMP: (19 weeks/5 days) EDC: 05/23/17 Dates by First Scan:(19 weeks/5 days) EDC: 05/23/17 Dates by Current Scan for: (20 weeks/0 days) EDC: 05/21/17 SURVEY IUP: Single PLACENTA: Anterior PREVIA: No previa LANG: cm CERVICAL LENGTH (transabdominal: norm > 3.0cm): 3.0 cm BIOMETRY PRESENTATION: Breech LIE: Longitudinal BPD: 4.7 cm 20 weeks / 2 days HC: 17.3 cm 19 weeks / 6 days AC: 15.2 cm 20 weeks / 3 days FL: 3.0 cm 19 weeks / 2 days ESTIMATED WEIGHT IN GRAMS: 319 grams ESTIMATED WEIGHT IN LBS/OZS: 0 lbs. 11 oz. WEIGHT PERCENTAGE BASED ON ESTABLISHED DATE: 64 % HC/AC: 1.1 FL/AC: 20 HEART RATE: 127 bpm RHYTHM: Arrhythmia ANATOMY SEEN (within normal limits): * Lateral Vent (< 1 cm) 0.7 cm * Cisterna Magna (< 1.1 cm) 0.4 cm * Nuchal Fold (< 0.6 cm) 0.3 cm * Cerebellum (varies with age) 1.9 cm Choroid Plexus (bilateral) Midline Falx Cavus Septi Pellucidi Four Chamber Heart Outflow tracts: LVOT/RVOT Stomach Situs Nose / Lips Diaphragm Kidneys (bilateral) Bladder Cord Insert Three Vessel Cord Longitudinal Spine Transverse Spine Arms (bilateral) Legs (bilateral) Normal appearing . The previously seen avascular hypoechoic area within the placenta is not measurable on today's examination and may have resolved in the interim. IMPRESSION: Single live intrauterine gestation with a sonographic gestational age of 20 weeks and 0 days concorda nt with the menstrual age. Estimated date of delivery per menstrual age of 1205/23/2017.
== END | disposition home or self-care (01) ==
LOC: RADUSWWP 09:35
PROVIDERS: ATTEND Obstetrics & Gynecology
DX: O99.332 Smoking (tobacco) complicating pregnancy, second trimester (principal); Z3A.20 20 weeks gestation of pregnancy
CPT/HCPCS: 76811

== ENCOUNTER 2018-06-19 09:47 | Emergency (ER) | payer OTHER ==
[2018-06-19 09:57] VITALS: TEMP 97.8
--- NOTE | 2018-06-19 10:06 | ED ---
Abdominal Pain HPI - General Chief Complaint: Abdominal Pain Stated Complaint: Abd Pain Time Seen by Provider: 06/19/18 10:04 Source: patient Mode of arrival: ambulatory Limitations: no limitations - History of Present Illness Initial Comments: 32-year-old female past medical history of cervical cancer status post local resection 1 yr ago presenting today for chief complaint of right lower abdominal pain. Patient states she has been menstruating for the past 5 days and has had light bleeding today. Patient states an hour prior to arrival she experienced sharp stabbing right lower quadrant pain, she stated it felt as though it was in the ovaries. Patient denies any nausea, vomiting, diarrhea, fever, chills, vaginal discharge. Patient states she was last sexually active over a year ago. Patient denies any vaginal odor. Patient denies any upper abdominal pain chest pain dyspnea and dyspnea on exertion or any other associated symptoms. Patient denies any other associated symptoms. Pt states the pain increases with walking and decreases with sitting still. Remainder of ROS (-). Upon arrival pt appears well, no signs of acute distress or toxicity. VS WNL, pt afebrile. - Related Data Home Medications Medication Instructions Recorded Confirmed No Known Home Medications 06/19/18 06/19/18 Allergies Allergy/AdvReac Type Severity Reaction Status Date / Time No Known Allergies Allergy Verified 06/19/18 10:23 Review of Systems ROS Statement: Those systems with pertinent positive or pertinent negative responses have been documented in the HPI. ROS Other: All systems not noted in ROS Statement are negative. Past Medical History Past Medical History: No Reported History Additional Past Medical History / Comment(s): glaucoma, hypoglycemic History of Any Multi-Drug Resistant Organisms: None Reported Past Surgical History: Ear Surgery Additional Past Surgical History / Comment(s): D&C x2 Past Psychological History: Anxiety, Bipolar, Depression Smoking Status: Current every day smoker Past Alcohol Use History: None Reported Past Drug Use History: None Reported General Exam - General Exam Comments Initial Comments: General: The patient is awake and alert, in no distress, and does not appear acutely ill. Eye: Pupils are equal, round and reactive to light, extra-ocular movements are intact. No nystagmus. There is normal conjunctiva bilaterally. No signs of icterus. Ears, nose, mouth and throat: There are moist mucous membranes and no oral lesions. Neck: The neck is supple, there is no tenderness or JVD. Cardiovascular: There is a regular rate and rhythm. No murmur, rub or gallop is appreciated. Respiratory: Lungs are clear to auscultation, respirations are non-labored, breath sounds are equal. No wheezes, stridor, rales, or rhonchi. Gastrointestinal: No noted diaphoresis, jaundice, pallor, protecting postures or squirming. Symmetrical pigmentation of abdomen without signs of inflammation. Striae present. Umbilicus mildline, inverted without swelling. No dilated veins. No noted abdominal distention. No visible masses. No peristalsis, aortic pulsations , or ventral hernia. Bowel sounds audible in all 4 quadrants, unremarkable. Tenderness to light or deep palpation of the right lower pelvic region. No rigidity or guarding. Liver edge, not palpable. Spleen edge, right and left kidney not palpable. Superior bladder margin non-tender. Special Testing: Negative Mertzon, Rovsing, McBurney, Lizz, cutaneous hyperesthesia. Iliopsoas and obturator tests negative bilaterally. Negative Heel Jar test. No CVA tenderness. Digital rectal exam deferred. Negative rebolledo turners or cullens sign Musculoskeletal: Normal ROM, no tenderness. Strength 5/5. Sensation intact. Pulses equal bilaterally 2+. Neurological: A&O x 3. CN II-XII intact, There are no obvious motor or sensory deficits. Coordination appears grossly intact. Speech is normal. Skin: Skin is warm and dry and no rashes or lesions are noted. Psychiatric: Cooperative, appropriate mood & affect, normal judgment. Pelvic exam: Normal female hair pattern, no external lesions. Vaginal mucosa pink and well rugated. Cervix present, pink, os closed. Small amount of blood in vaginal vault. Mild right-sided adnexal tenderness. No cervical motion tenderness or left-sided adnexal tenderness. Limitations: no limitations Course Vital Signs 06/19/18 06/19/18 09:55 11:47 Temperature 97.8 F Pulse Rate 79 76 Respiratory 16 18 Rate Blood Pressure 122/82 124/79 O2 Sat by Pulse 100 97 Oximetry - Reevaluation(s) Reevaluation #1: Pt states that pain has significantly decreased 06/19/18 11:51 Medical Decision Making - Medical Decision Making 32yo with cc of right lower pelvic pain. (-) McBurneys, no umbilical or Rovsing sign. No rigidity or guarding. Pain on physical examination was right lower pelvic. Pelvic exam revealed a small amount of blood, remainder unremarkable. Pelvic ultrasound revealed a normal uterus with a slightly thickened endometrium consistent with menstruation. There was good arterial venous flow to the ovaries. Bilateral next within normal limits. There was a small amount of free fluid in the posterior cul-de-sac.Given the location of pain and did obtain a right lower quadrant ultrasound revealing an appendix diameter of 2.7 it was compressible with no apparent hypervascular wall and no appendicolith present. There was redemonstrated free fluid RLQ/posterior cul-de-sac. Laboratory studies unremarkable, patient with blood cell count within normal limits. Patient is afebrile. Patient states her significant improvement in pain. At this time I feel patient may have had a ruptured ovarian cyst. At this time I do feel patient is stable for discharge. Patient was given strict return parameters for persistent and worsening pain or any new symptoms. I discussed possibility of early appendicitis with patient however my clinical suspicion is low. We discussed CT vs anticipatory guidance and pt would like to trial outpatient symptomatic treatment with return for any change, persistent or worsening symptoms. Discussed this plan is as patient case with attending provider Dr. Eason who agreed to impression and plan. Pt discharged in stable condition appearing well, verbalized understanding of plan and return parameters. - Lab Data Result diagrams: 06/19/18 10:24 06/19/18 10:24 Lab Results 06/19/18 06/19/18 06/19/18 Range/Units 10:24 10:24 10:24 WBC 10.1 (3.8-10.6) k/uL RBC 4.66 (3.80-5.40) m/uL Hgb 13.9 (11.4-16.0) gm/dL Hct 42.4 (34.0-46.0) % MCV 90.9 (80.0-100.0) fL MCH 29.9 (25.0-35.0) pg MCHC 32.9 (31.0-37.0) g/dL RDW 13.2 (11.5-15.5) % Plt Count 185 (150-450) k/uL Neutrophils % 59 % Lymphocytes % 30 % Monocytes % 3 % Eosinophils % 5 % Basophils % 1 % Neutrophils # 6.0 (1.3-7.7) k/uL Lymphocytes # 3.0 (1.0-4.8) k/uL Monocytes # 0.3 (0-1.0) k/uL Eosinophils # 0.5 (0-0.7) k/uL Basophils # 0.1 (0-0.2) k/uL Sodium 141 (137-145) mmol/L Potassium 3.8 (3.5-5.1) mmol/L Chloride 111 H (98-107) mmol/L Carbon Dioxide 23 (22-30) mmol/L Anion Gap 7 mmol/L BUN 10 (7-17) mg/dL Creatinine 0.73 (0.52-1.04) mg/dL Est GFR (CKD-EPI)AfAm >90 (>60 ml/min/1.73 sqM) Est GFR (CKD-EPI)NonAf >90 (>60 ml/min/1.73 sqM) Glucose 91 (74-99) mg/dL Calcium 9.4 (8.4-10.2) mg/dL Total Bilirubin 0.4 (0.2-1.3) mg/dL AST 16 (14-36) U/L ALT 13 (9-52) U/L Alkaline Phosphatase 64 (38-126) U/L Total Protein 6.8 (6.3-8.2) g/dL Albumin 4.3 (3.5-5.0) g/dL Urine Color Yellow Urine Appearance Clear (Clear) Urine pH 5.5 (5.0-8.0) Ur Specific [place] 1.021 (1.001-1.035) Urine Protein Trace H (Negative) Urine Glucose (UA) Negative (Negative) Urine Ketones Negative (Negative) Urine Blood Large H (Negative) Urine Nitrite Negative (Negative) Urine Bilirubin Negative (Negative) Urine Urobilinogen <2.0 (<2.0) mg/dL Ur Leukocyte Esterase Large H (Negative) Urine RBC >182 H (0-5) /hpf Urine WBC 31 H (0-5) /hpf Ur Squamous Epith Cells 2 (0-4) /hpf Urine Bacteria Rare H (None) /hpf Urine Mucus Occasional H (None) /hpf Urine HCG, Qual (Not Detectd) 06/19/18 Range/Units 10:24 WBC (3.8-10.6) k/uL RBC (3.80-5.40) m/uL Hgb (11.4-16.0) gm/dL Hct (34.0-46.0) % MCV (80.0-100.0) fL MCH (25.0-35.0) pg MCHC (31.0-37.0) g/dL RDW (11.5-15.5) % Plt Count (150-450) k/uL Neutrophils % % Lymphocytes % % Monocytes % % Eosinophils % % Basophils % % Neutrophils # (1.3-7.7) k/uL Lymphocytes # (1.0-4.8) k/uL Monocytes # (0-1.0) k/uL Eosinophils # (0-0.7) k/uL Basophils # (0-0.2) k/uL Sodium (137-145) mmol/L Potassium (3.5-5.1) mmol/L Chloride (98-107) mmol/L Carbon Dioxide (22-30) mmol/L Anion Gap mmol/L BUN (7-17) mg/dL Creatinine (0.52-1.04) mg/dL Est GFR (CKD-EPI)AfAm (>60 ml/min/1.73 sqM) Est GFR (CKD-EPI)NonAf (>60 ml/min/1.73 sqM) Glucose (74-99) mg/dL Calcium (8.4-10.2) mg/dL Total Bilirubin (0.2-1.3) mg/dL AST (14-36) U/L ALT (9-52) U/L Alkaline Phosphatase (38-126) U/L Total Protein (6.3-8.2) g/dL Albumin (3.5-5.0) g/dL Urine Color Urine Appearance (Clear) Urine pH (5.0-8.0) Ur Specific [place] (1.001-1.035) Urine Protein (Negative) Urine Glucose (UA) (Negative) Urine Ketones (Negative) Urine Blood (Negative) Urine Nitrite (Negative) Urine Bilirubin (Negative) Urine Urobilinogen (<2.0) mg/dL Ur Leukocyte Esterase (Negative) Urine RBC (0-5) /hpf Urine WBC (0-5) /hpf Ur Squamous Epith Cells (0-4) /hpf Urine Bacteria (None) /hpf Urine Mucus (None) /hpf Urine HCG, Qual Not Detected (Not Detectd) Disposition Clinical Impression: Pelvic pain Disposition: HOME SELF-CARE Condition: Good Instructions: Acute Abdominal Pain (ED), Pelvic Pain in Women (ED) Additional Instructions: Please use medication as discussed. Please follow-up with family doctor in the next 2 days. IMMEDIATELY RETURN FOR WORSENING OR PERSISTENT PAIN as discussed. Please return to emergency room if new symptoms develop or for any other concerns. Is patient prescribed a controlled substance at d/c from ED?: No Referrals: None,Stated [Primary Care Provider] - 1-2 days [facility] [NON-STAFF] - 1-2 days Time of Disposition: 11:49
[2018-06-19] MEDS ORDERED: SODIUM CHLORIDE 0.9% 1,000 ML IV STA (10:10)
[2018-06-19] MEDS ORDERED: MORPHINE SULFATE 4 MG/ML SYRINGE IVP STA (10:16)
[2018-06-19 10:41] LABS: Basophils # (A) 0.1 k/uL (0-0.2); Basophils % (A) 1 %; Eosinophils # (A) 0.5 k/uL (0-0.7); Eosinophils % (A) 5 %; HCT 42.4 % (34.0-46.0); HGB 13.9 gm/dL (11.4-16.0); Lymphocytes % (A) 30 %; MCH 29.9 pg (25.0-35.0); MCHC 32.9 g/dL (31.0-37.0); MCV 90.9 fL (80.0-100.0); Mean Platelet Volume 9.5; Monocytes # (A) 0.3 k/uL (0-1.0); Monocytes % (A) 3 %; Neutrophils % (A) 59 %; Platelet Count 185 k/uL (150-450); RBC 4.66 m/uL (3.80-5.40); RDW 13.2 % (11.5-15.5); WBC 10.1 k/uL (3.8-10.6)
[2018-06-19 10:46] LABS: Appearance,Urine Clear (Clear); Bacteria,Urine Rare /hpf; Bilirubin,Urine Negative (Negative); Blood,Urine Large (Negative); Color,Urine Yellow; Glucose,Urine (UA) Negative (Negative); Ketones,Urine Negative (Negative); Leukocyte Esterase,Urine Large (Negative); Mucus,Urine Occasional /hpf; Nitrite,Urine Negative (Negative); PH, Urine 5.5 (5.0-8.0); Protein,Urine Trace (Negative); RBC,Urine >182 /hpf (0-5); Specific Gravity,Urine 1.021 (1.001-1.035); Squamous Epithelial Cell,Urine 2 /hpf (0-4); Urobilinogen,Urine <2.0 mg/dL (<2.0); WBC,Urine 31 /hpf (0-5)
[2018-06-19 10:50] LABS: ALT 13 U/L (9-52); AST 16 U/L (14-36); Albumin 4.3 g/dL (3.5-5.0); Alkaline Phosphatase 64 U/L (38-126); Anion Gap 7 mmol/L; Blood Urea Nitrogen 10 mg/dL (7-17); Calcium 9.4 mg/dL (8.4-10.2); Carbon Dioxide 23 mmol/L (22-30); Chloride 111 mmol/L (98-107); Glucose 91 mg/dL (74-99); Potassium 3.8 mmol/L (3.5-5.1); Sodium 141 mmol/L (137-145); Total Bilirubin 0.4 mg/dL (0.2-1.3); Total Protein 6.8 g/dL (6.3-8.2)
--- NOTE | 2018-06-19 11:21 | US ---
EXAMINATION TYPE: US transvaginal DATE OF EXAM: 06/19/2018 COMPARISON: CLINICAL HISTORY: Pain. RLQ pain, on menses TECHNIQUE: Transvaginal (TV). Date of LMP: 06/14/2018, EXAM MEASUREMENTS: Uterus: 8.0 x 6.0 x 4.8 cm Endometrial Stripe: 1.7 cm Right Ovary: 3.1 x 1.7 x 1.5 cm Left Ovary: 2.7 x 2.0 x 1.7 cm 1. Uterus: Anteverted wnl 2. Endometrium: Slightly thickened 3. Right Ovary: follicles seen 4. Left Ovary: follicles seen Spectral, color and waveform doppler imaging shows good arterial and venous flow within the ovaries ; there is no evidence for ovarian torsion. 5. Bilateral Adnexa: wnl 6. Posterior cul-de-sac: free fluid IMPRESSION: MINIMAL THICKENING OF THE ENDOMETRIUM.
--- NOTE | 2018-06-19 11:22 | US ---
EXAMINATION TYPE: US abdomen APPY DATE OF EXAM: 06/19/2018 COMPARISON: CLINICAL HISTORY: RLQ pain. No fever APPENDIX AP Diameter (normal < 6mm): 2.7 mm Measured outer wall to outer wall. Is the appendix seen in its entirety from the proximal cecum to distal end: Partial tubular compress ible structure seen Is the appendix compressible: yes Does the appendix wall appear hypervascular: no Is an appendicolith present: no Is there inflammatory changes or free fluid present: Free fluid seen in RLQ IMPRESSION: WE HAVE NOT IDENTIFIED THE APPENDIX WITH CERTAINTY. THERE IS A SMALL AMOUNT OF FREE FLUID IN THE RIGH T LOWER QUADRANT.
[2018-06-19 11:48] VITALS: BP 124/79; PULSE 76; RESP 18
[2018-06-21 15:50] LABS: C. trachomatis,PCR Negative (Neg,Equiv); Chlamydia trachomatis Source Urine; N. gonorrhoeae,PCR Negative (Neg,Equiv); Neisseria Source Urine
== END 2018-06-19 11:56 | disposition home or self-care (01) ==
LOC: EC 09:47
DX: R10.2 Pelvic and perineal pain (principal); R10.31 Right lower quadrant pain; F17.200 Nicotine dependence, unspecified, uncomplicated; Z85.41 Personal history of malignant neoplasm of cervix uteri
CPT/HCPCS: 36415; 80053; 85025; 81001; 81025; 87808; 87491; 87591; 87070; 87086; 87205; 93975; 76705; 76830; 99284; 96374; 96361; J2270

== ENCOUNTER 2019-06-07 21:47 | Emergency (ER) | payer OTHER ==
[2019-06-07 21:52] VITALS: BP 125/80; RESP 20; TEMP 97.8
[2019-06-07] MEDS ORDERED: ACET/COD 300 MG/30 MG STARTER PACK 6 TAB BTL PO STA (22:15)
[2019-06-07] MEDS ORDERED: IPRATROPIUM-ALBUTEROL 3 ML NEB INHALATION STA (22:16)
[2019-06-07] MEDS ORDERED: IBUPROFEN 600 MG STARTER PACK 4 TAB BTL PO STA (22:17)
[2019-06-07 22:29] VITALS: PULSE 104
--- NOTE | 2019-06-07 22:38 | XR ---
EXAMINATION TYPE: XR chest 2V DATE OF EXAM: 06/07/2019 COMPARISON: 07/24/2016 HISTORY: Cough TECHNIQUE: FINDINGS: Heart and mediastinum are normal. Lungs are clear. Diaphragm is normal. Bony thorax appears normal. Pulmonary vascularity is normal. IMPRESSION: Normal chest. No change.
--- NOTE | 2019-06-07 22:59 | ED ---
General Adult HPI - General Chief complaint: Anxiety Stated complaint: Dental pain Time Seen by Provider: 06/07/19 21:54 Source: patient Mode of arrival: ambulatory Limitations: no limitations - History of Present Illness Initial comments: 33-year-old female patient presents the emergency department today for evaluation of anxiety, and left-sided facial swelling. Patient states that she has a history of generalized anxiety disorder. States that things have been seeming to become worse lately. States that her physician started her on Prozac approximately 4 days ago. Patient states this has worsened her anxiety and panic attacks. Patient states that she also developed left-sided facial swelling and pain today. Patient does need to have her wisdom teeth removed. States whenever with some tooth is broken. She is unsure if the swelling is related to this. She denies any suicidal or homicidal ideation. States that she does smoke marijuana. Denies any other street drug use. Patient denies any recent rash, fever, chills, abdominal pain, nausea, vomiting, diarrhea, constipation, back pain, numbness, tingling, hematuria, dysuria, urinary urgency, urinary frequency, headache, visual changes, or any other complaints. - Related Data Previous Rx's Medication Instructions Recorded Amoxic-Pot Clav 875-125Mg 1 tab PO Q12HR #20 tablet 06/07/19 [Augmentin 875-125] Ibuprofen [Motrin] 600 mg PO Q8HR PRN #30 tab 06/07/19 Allergies Allergy/AdvReac Type Severity Reaction Status Date / Time No Known Allergies Allergy Verified 06/07/19 21:52 Review of Systems ROS Statement: Those systems with pertinent positive or pertinent negative responses have been documented in the HPI. ROS Other: All systems not noted in ROS Statement are negative. Past Medical History Past Medical History: No Reported History Additional Past Medical History / Comment(s): glaucoma, hypoglycemic History of Any Multi-Drug Resistant Organisms: None Reported Past Surgical History: Ear Surgery Additional Past Surgical History / Comment(s): D&C x2 Past Psychological History: Anxiety, Bipolar, Depression Smoking Status: Current every day smoker Past Alcohol Use History: None Reported Past Drug Use History: Marijuana General Exam Limitations: no limitations General appearance: alert, in no apparent distress, other (Physical well- developed, well-nourished adult female patient in no acute distress. Vital signs upon presentation are temperature 97.8F, pulse 119, respirations 20, blood pressure 125/80, pulse ox 99% on room air) ENT exam: Present: normal exam, normal oropharynx, mucous membranes moist, other (The preauricular lymph nodes to the left side of the face are enlarged. There are 2 small scabbed lesions.) Respiratory exam: Present: normal lung sounds bilaterally. Absent: respiratory distress, wheezes, rales, rhonchi, stridor Cardiovascular Exam: Present: normal rhythm, tachycardia, normal heart sounds. Absent: systolic murmur, diastolic murmur, rubs, gallop, clicks Neurological exam: Present: alert, oriented X3, CN II-XII intact Psychiatric exam: Present: normal affect, normal mood Skin exam: Present: warm, dry, intact, normal color. Absent: rash Course Vital Signs 06/07/19 06/07/19 06/07/19 21:49 22:24 22:28 Temperature 97.8 F Pulse Rate 119 H 112 H 104 H Respiratory 20 Rate Blood Pressure 125/80 O2 Sat by Pulse 99 Oximetry Medical Decision Making - Medical Decision Making 33-year-old female patient presents to the emergency department today for evaluation of increased anxiety and swelling to the left side of her face. He is also reporting some shortness of breath and cough. Physical examination reveals clear equal lung sounds. She does have some preauricular swelling consistent with enlarged lymph nodes. She does have 2 wounds near the area. There is concern for some cellulitis. We did perform chest x-ray which was negative. She refused to see emergency psychiatric services. She'll be started on Augmentin for the lymph nodes which are also covered dental infection. She is instructed to follow-up for surgery for further evaluation for her wisdom teeth. She is given pain medication for discomfort. Return parameters discussed in detail. She verbalizes understanding and agrees with this plan. - Radiology Data Radiology results: report reviewed, image reviewed Two-view x-ray of the chest is obtained. Report is reviewed in its entirety. Impression by Dr. Mora shows normal chest. No change Disposition Clinical Impression: Anxiety, Lymphadenopathy Disposition: HOME SELF-CARE Condition: Good Instructions (If sedation given, give patient instructions): Lymphadenopathy (ED), Generalized Anxiety Disorder (ED) Additional Instructions: Complete and better prescription and full. Follow-up with oral surgeon for further evaluation for her wisdom teeth. Follow-up with counseling and psychiatry for further evaluation of anxiety. Follow up to primary care physician for recheck in 1-2 days. Return to the emergency department immediately for any new, worsening, or concerning symptoms. Prescriptions: Amoxic-Pot Clav 875-125Mg [Augmentin 875-125] 1 tab PO Q12HR #20 tablet Ibuprofen [Motrin] 600 mg PO Q8HR PRN #30 tab PRN Reason: Pain Is patient prescribed a controlled substance at d/c from ED?: No Referrals: Kendrick Price DDS [STAFF PHYSICIAN] - 1-2 days Time of Disposition: 22:59
[2019-06-07] MEDS ORDERED: AMOXIC-POT CLAV 875MG STARTER 2 EACH TABLET PO STA (23:00)
== END 2019-06-07 23:28 | disposition home or self-care (01) ==
LOC: EC 21:47
DX: F41.9 Anxiety disorder, unspecified (principal); R59.0 Localized enlarged lymph nodes; R05 Cough; R06.02 Shortness of breath; R00.0 Tachycardia, unspecified; L98.8 Other specified disorders of the skin and subcutaneous tissue; F31.9 Bipolar disorder, unspecified; F17.200 Nicotine dependence, unspecified, uncomplicated; Z79.899 Other long term (current) drug therapy; Z53.20 Procedure and treatment not carried out because of patient's decision for unspecified reasons
CPT/HCPCS: 71046; 94640; 99284

== ENCOUNTER 2019-07-09 13:54 | Emergency (ER) | payer OTHER ==
[2019-07-09] MEDS ORDERED: MORPHINE SULFATE 4 MG/ML SYRINGE IV STA (14:11)
[2019-07-09] MEDS ORDERED: SODIUM CHLORIDE 0.9% 1,000 ML IV STA (14:11)
--- NOTE | 2019-07-09 14:28 | ED ---
General Adult HPI - General Chief complaint: Abdominal Pain Stated complaint: Abd pain Time Seen by Provider: 07/09/19 14:04 Source: patient, RN notes reviewed, old records reviewed Mode of arrival: ambulatory Limitations: no limitations - History of Present Illness Initial comments: 34-year-old female patient presents with history of hypoglycemia, glaucoma presents to ED for chief complaint of right upper quadrant pain. Patient reports that this pain began suddenly after getting off couch and presented to hospital. Denies any nausea vomiting. Denies any other complaints at this time. Systemic: Pt denies fatigue, fever/chills, rash. Pt denies weakness, night sweats, weight loss. Neuro: Pt denies headache, visual disturbances, syncope or pre-syncope. HEENT: Pt denies ocular discharge or irritation, otalgia, rhinorrhea, pharyngitis or notable lymphadenopathy. Cardiopulmonary: Pt denies chest pain, SOB, heart palpitations, dyspnea on exertion. Abdominal/GI: Pt denies abdominal pain, n/v/d. : Pt denies dysuria, burning w/ urination, frequency/urgency. Denies new onset urinary or bowel incontinence. MSK: Pt denies myalgia, loss of strength or function in extremities. Neuro: Pt denies new onset weakness, paresthesias. - Related Data Previous Rx's Medication Instructions Recorded Amoxic-Pot Clav 875-125Mg 1 tab PO Q12HR #20 tablet 06/07/19 [Augmentin 875-125] Ibuprofen [Motrin] 600 mg PO Q8HR PRN #30 tab 06/07/19 Allergies Allergy/AdvReac Type Severity Reaction Status Date / Time No Known Allergies Allergy Verified 07/09/19 14:00 Review of Systems ROS Statement: Those systems with pertinent positive or pertinent negative responses have been documented in the HPI. ROS Other: All systems not noted in ROS Statement are negative. Past Medical History Past Medical History: No Reported History Additional Past Medical History / Comment(s): glaucoma, hypoglycemic History of Any Multi-Drug Resistant Organisms: None Reported Past Surgical History: Ear Surgery Additional Past Surgical History / Comment(s): D&C x2 Past Psychological History: Anxiety, Bipolar, Depression Smoking Status: Current every day smoker Past Alcohol Use History: None Reported Past Drug Use History: Marijuana General Exam - General Exam Comments Initial Comments: Constitutional: NAD, AOX3, Pt has pleasant affect. HEENT: NC/AT, trachea midline, neck supple, no lymphadenopathy. Posterior pharynx non erythematous, without exudates. External ears appear normal, without discharge. Mucous membranes moist. Eyes PERRLA, EOM intact. There is no scleral icterus. No pallor noted. Cardiopulmonary: RRR, no murmurs, rubs or gallops, no JVD noted. Lungs CTAB in anterior and posterior valdivia. No peripheral edema. Abdominal exam: Abdomen soft and non-distended. Abdomen mildly tender to palpation right upper quadrant region. No other areas of abdominal tenderness. Liao sign is negative. Bowel sounds active in LLQ. No hepatosplenomegaly. No ecchymosis Neuro: CN II-XII grossly intact. No nuchal rigidity. No raccon eyes, no dutton sign, no hemotympanum. No cervical spinal tenderness. MSK: No posterior calf tenderness bilaterally, homans sign negative bilaterally. Posterior tibialis and radial pulse +2 bilaterally. Sensation intact in upper and lower extremities. Full active ROM in upper and lower extremities, 5/5 stregnth. Limitations: no limitations Course Vital Signs 07/09/19 07/09/19 13:58 16:51 Temperature 98.2 F 98.0 F Pulse Rate 108 H 99 Respiratory 18 16 Rate Blood Pressure 153/32 140/87 O2 Sat by Pulse 98 97 Oximetry Medical Decision Making - Medical Decision Making 34-year-old female patient presents with history of hypoglycemia, glaucoma presents to ED for chief complaint of right upper quadrant pain. Patient reports that this pain began suddenly after getting off couch and presented to hospital. Denies any nausea vomiting. Denies any other complaints at this time. Patient vital signs displayed mild tachycardia secondary to pain. Within acceptable limits at discharge. Physical exam did display a mild amount of right upper quadrant tenderness. Abdomen investigations are non-impressive. Urine will be cultured. Ultrasound of gallbladder did not display any evidence of cholelithiasis or cholecystitis. Patient does report that she has a history of renal calculi. A CT abdomen and pelvis was obtained. This did display an appendicolith within the right lower pelvis. The visualized portion of the appendix is air filled and within normal limits of size. There is a radiopaque calculi noted in the gallbladder. Patient's symptoms are significantly improved. It is possible patient had a transient episode of biliary colic. She denies any chance of STDs or dysuria. Patient was discharged with outpatient primary care and surgery follow-up and will return to ED if condition worsens. Case discussed with Dr. Oropeza. - Lab Data Result diagrams: 07/09/19 14:20 07/09/19 14:20 Lab Results 07/09/19 07/09/19 07/09/19 Range/Units 14:20 14:20 14:20 WBC 11.6 H (3.8-10.6) k/uL RBC 5.31 (3.80-5.40) m/uL Hgb 15.7 (11.4-16.0) gm/dL Hct 48.3 H (34.0-46.0) % MCV 90.9 (80.0-100.0) fL MCH 29.5 (25.0-35.0) pg MCHC 32.5 (31.0-37.0) g/dL RDW 13.3 (11.5-15.5) % Plt Count 293 (150-450) k/uL Neutrophils % 52 % Lymphocytes % 38 % Monocytes % 4 % Eosinophils % 3 % Basophils % 2 % Neutrophils # 6.0 (1.3-7.7) k/uL Lymphocytes # 4.4 (1.0-4.8) k/uL Monocytes # 0.4 (0-1.0) k/uL Eosinophils # 0.3 (0-0.7) k/uL Basophils # 0.2 (0-0.2) k/uL Sodium 139 (137-145) mmol/L Potassium 3.7 (3.5-5.1) mmol/L Chloride 104 (98-107) mmol/L Carbon Dioxide 23 (22-30) mmol/L Anion Gap 12 mmol/L BUN 8 (7-17) mg/dL Creatinine 0.68 (0.52-1.04) mg/dL Est GFR (CKD-EPI)AfAm >90 (>60 ml/min/1.73 sqM) Est GFR (CKD-EPI)NonAf >90 (>60 ml/min/1.73 sqM) Glucose 106 H (74-99) mg/dL Plasma Lactic Acid Sonido 1.6 (0.7-2.0) mmol/L Calcium 10.1 (8.4-10.2) mg/dL Total Bilirubin 0.6 (0.2-1.3) mg/dL AST 20 (14-36) U/L ALT 11 (4-34) U/L Alkaline Phosphatase 81 (38-126) U/L Total Protein 7.9 (6.3-8.2) g/dL Albumin 5.0 (3.5-5.0) g/dL Lipase 47 (23-300) U/L Urine Color Urine Appearance (Clear) Urine pH (5.0-8.0) Ur Specific [place] (1.001-1.035) Urine Protein (Negative) Urine Glucose (UA) (Negative) Urine Ketones (Negative) Urine Blood (Negative) Urine Nitrite (Negative) Urine Bilirubin (Negative) Urine Urobilinogen (<2.0) mg/dL Ur Leukocyte Esterase (Negative) Urine RBC (0-5) /hpf Urine WBC (0-5) /hpf Ur Squamous Epith Cells (0-4) /hpf Urine Mucus (None) /hpf Urine HCG, Qual (Not Detectd) 07/09/19 07/09/19 Range/Units 14:28 14:28 WBC (3.8-10.6) k/uL RBC (3.80-5.40) m/uL Hgb (11.4-16.0) gm/dL Hct (34.0-46.0) % MCV (80.0-100.0) fL MCH (25.0-35.0) pg MCHC (31.0-37.0) g/dL RDW (11.5-15.5) % Plt Count (150-450) k/uL Neutrophils % % Lymphocytes % % Monocytes % % Eosinophils % % Basophils % % Neutrophils # (1.3-7.7) k/uL Lymphocytes # (1.0-4.8) k/uL Monocytes # (0-1.0) k/uL Eosinophils # (0-0.7) k/uL Basophils # (0-0.2) k/uL Sodium (137-145) mmol/L Potassium (3.5-5.1) mmol/L Chloride (98-107) mmol/L Carbon Dioxide (22-30) mmol/L Anion Gap mmol/L BUN (7-17) mg/dL Creatinine (0.52-1.04) mg/dL Est GFR (CKD-EPI)AfAm (>60 ml/min/1.73 sqM) Est GFR (CKD-EPI)NonAf (>60 ml/min/1.73 sqM) Glucose (74-99) mg/dL Plasma Lactic Acid Sonido (0.7-2.0) mmol/L Calcium (8.4-10.2) mg/dL Total Bilirubin (0.2-1.3) mg/dL AST (14-36) U/L ALT (4-34) U/L Alkaline Phosphatase (38-126) U/L Total Protein (6.3-8.2) g/dL Albumin (3.5-5.0) g/dL Lipase (23-300) U/L Urine Color Yellow Urine Appearance Cloudy H (Clear) Urine pH 6.0 (5.0-8.0) Ur Specific [place] 1.028 (1.001-1.035) Urine Protein 1+ H (Negative) Urine Glucose (UA) Negative (Negative) Urine Ketones Negative (Negative) Urine Blood Negative (Negative) Urine Nitrite Negative (Negative) Urine Bilirubin Negative (Negative) Urine Urobilinogen 2.0 (<2.0) mg/dL Ur Leukocyte Esterase Large H (Negative) Urine RBC 7 H (0-5) /hpf Urine WBC 22 H (0-5) /hpf Ur Squamous Epith Cells 16 H (0-4) /hpf Urine Mucus Many H (None) /hpf Urine HCG, Qual Not Detected (Not Detectd) Disposition Clinical Impression: Abdominal pain Disposition: HOME SELF-CARE Condition: Stable Instructions (If sedation given, give patient instructions): Abdominal Pain (ED) Additional Instructions: Follow-up with primary care provider and general surgeon tomorrow. Return to ER if condition worsens in any way. Is patient prescribed a controlled substance at d/c from ED?: No Referrals: None,Stated [REFERRING] - 1-2 days Mitesh Espitia MD [STAFF PHYSICIAN] - 1-2 days
[2019-07-09 14:48] LABS: ALT 11 U/L (4-34); AST 20 U/L (14-36); African American GFR (CKD) >90 (>60 ml/min/1.73 sqM); Alkaline Phosphatase 81 U/L (38-126); Anion Gap 12 mmol/L; Blood Urea Nitrogen 8 mg/dL (7-17); Calcium 10.1 mg/dL (8.4-10.2); Carbon Dioxide 23 mmol/L (22-30); Chloride 104 mmol/L (98-107); Glucose 106 mg/dL (74-99); Non-African American GFR(CKD) >90 (>60 ml/min/1.73 sqM); Potassium 3.7 mmol/L (3.5-5.1); Sodium 139 mmol/L (137-145); Total Bilirubin 0.6 mg/dL (0.2-1.3); Total Protein 7.9 g/dL (6.3-8.2)
[2019-07-09 14:49] LABS: Basophils # (A) 0.2 k/uL (0-0.2); Basophils % (A) 2 %; Eosinophils # (A) 0.3 k/uL (0-0.7); Eosinophils % (A) 3 %; HCT 48.3 % (34.0-46.0); HGB 15.7 gm/dL (11.4-16.0); Lymphocytes # (A) 4.4 k/uL (1.0-4.8); Lymphocytes % (A) 38 %; MCH 29.5 pg (25.0-35.0); MCHC 32.5 g/dL (31.0-37.0); MCV 90.9 fL (80.0-100.0); Mean Platelet Volume 9.7; Monocytes # (A) 0.4 k/uL (0-1.0); Monocytes % (A) 4 %; Neutrophils % (A) 52 %; Platelet Count 293 k/uL (150-450); RBC 5.31 m/uL (3.80-5.40); RDW 13.3 % (11.5-15.5); WBC 11.6 k/uL (3.8-10.6)
--- NOTE | 2019-07-09 15:00 | US ---
EXAMINATION TYPE: US gallbladder DATE OF EXAM: 07/09/2019 COMPARISON: NONE CLINICAL HISTORY: RUQ pain . RUQ pain today EXAM MEASUREMENTS: Liver Length: 13.8 cm Gallbladder Wall: 0.2 cm CBD: 0.3 cm Right Kidney: 9.9 x 4.1 x 4.4 cm Pancreas: visualized portions appear wnl Liver: appears wnl Gallbladder: junctional fold noted, no evidence of stones Evidence for sonographic Liao's sign: no CBD: wnl Right Kidney: no evidence of hydronephrosis IMPRESSION: No sonographic evidence of cholelithiasis nor acute cholecystitis. Unremarkable upper glen drant abdominal ultrasound
[2019-07-09 15:07] LABS: Appearance,Urine Cloudy (Clear); Bilirubin,Urine Negative (Negative); Blood,Urine Negative (Negative); Color,Urine Yellow; Glucose,Urine (UA) Negative (Negative); Ketones,Urine Negative (Negative); Leukocyte Esterase,Urine Large (Negative); Mucus,Urine Many /hpf; Nitrite,Urine Negative (Negative); Protein,Urine 1+ (Negative); RBC,Urine 7 /hpf (0-5); Specific Gravity,Urine 1.028 (1.001-1.035); Squamous Epithelial Cell,Urine 16 /hpf (0-4); WBC,Urine 22 /hpf (0-5)
--- NOTE | 2019-07-09 16:02 | CT ---
EXAMINATION TYPE: CT abdomen pelvis wo con DATE OF EXAM: 07/09/2019 COMPARISON: None HISTORY: Right flank pain. CT DLP: 346.3 mGycm Automated exposure control for dose reduction was used. TECHNIQUE: Helical acquisition of images was performed from the lung bases through the pelvis. FINDINGS: LUNG BASES: No significant abnormality is appreciated. LIVER/GB: Focal probable fatty infiltration is seen of the liver near the fissure for the falciform l igament. Remaining unenhanced portions of the liver are grossly unremarkable. Radiopaque calculi in t he gallbladder. PANCREAS: No significant abnormality is seen. SPLEEN: No significant abnormality is seen. ADRENALS: No nodularity or thickening. KIDNEYS: No hydronephrosis or nephrolithiasis. FREE AIR: No free air is visualized ADENOPATHY: No greater than 1 cm short axis lymph nodes in the abdomen or pelvis given the limitatio n of lack of intravenous contrast. OSSEOUS STRUCTURES: Focal punctate scattered foci are seen within the pelvis, representing small bon e islands in the patient of this age. BOWEL: There is a right-sided appendicolith. The appendix however does appear within normal limits o f size. The distal portion is partially obscured abutting other loops of bowel in the right low pelvi s. Proximal portion is air-filled and unremarkable. No dilated large or small bowel is seen. IMPRESSION: Appendicolith located within the right low pelvis. The visualized proximal portion of the appendix is air-filled and within normal limits of size. No hydronephrosis or nephrolithiasis.
[2019-07-09] MEDS ORDERED: ACET/COD 300 MG/30 MG STARTER PACK 6 TAB BTL PO STA (16:38)
[2019-07-09 16:53] VITALS: BP 140/87; PULSE 99; RESP 16; TEMP 98
== END 2019-07-09 16:56 | disposition home or self-care (01) ==
LOC: EC 13:54
DX: R10.11 Right upper quadrant pain (principal); R00.0 Tachycardia, unspecified; K38.1 Appendicular concretions; F17.200 Nicotine dependence, unspecified, uncomplicated
CPT/HCPCS: 36415; 80053; 83605; 83690; 85025; 81001; 81025; 87086; 76705; 74176; 99284; 96374; 96361 ×2; J2270

== ENCOUNTER 2020-02-01 06:58 | Day surgery (SDC) | payer OTHER ==
[~2020-02-01 06:58] MED LIST: ACETAMINOPHEN TAB 500 MG TAB PO ONE; HEPARIN SODIUM,PORCINE 5,000 UNIT/ML 1 ML VIAL SQ ONE
[2020-02-01] MEDS ORDERED: DEXAMETHASONE SOD PHOSPHATE 10 MG/ML 1 ML VIAL IV ONE (07:22)
[2020-02-01] MEDS ORDERED: ONDANSETRON 4 MG/2 ML VIAL IVP ONE ×2 (07:22→10:45)
[2020-02-01] MEDS ORDERED: LACTATED RINGERS 1,000 ML IV SCH (07:22)
[2020-02-01] MEDS ORDERED: LIDOCAINE 1% (10MG/ML) FOR IV START INTRADERMA ONE (07:30)
[2020-02-01] MEDS ORDERED: MIDAZOLAM 2 MG/2 ML VIAL IV ONE (08:00)
--- NOTE | 2020-02-01 08:25 | P.GSHP ---
History of Present Illness H&P Date: 02/01/20 Chief Complaint: Cholelithiasis The 34-year-old female who presents today for laparoscopic cholecystectomy. Patient has had complaints of pain. Her recent ultrasound showed evidence of cholelithiasis. Past Medical History Past Medical History: No Reported History Additional Past Medical History / Comment(s): glaucoma, hypoglycemic History of Any Multi-Drug Resistant Organisms: None Reported Past Surgical History: Ear Surgery Additional Past Surgical History / Comment(s): D&C x2, PROSTETHIC LENS TO LEFT EYE Past Anesthesia/Blood Transfusion Reactions: No Reported Reaction Past Psychological History: Anxiety, Bipolar, Depression Smoking Status: Former smoker Past Alcohol Use History: None Reported Past Drug Use History: Marijuana Medications and Allergies Home Medications Medication Instructions Recorded Confirmed Type Ibuprofen [Motrin] 600 mg PO Q8HR PRN #30 tab 06/07/19 02/01/20 Rx Nicotine 14Mg/24Hr Patch [Habitrol] 1 patch TOPICAL DAILY 02/01/20 02/01/20 History Allergies Allergy/AdvReac Type Severity Reaction Status Date / Time No Known Allergies Allergy Verified 02/01/20 07:19 Surgical - Exam Vital Signs Temp Pulse Resp BP Pulse Ox 97.8 F 74 16 109/73 98 02/01/20 07:28 02/01/20 07:28 02/01/20 07:28 02/01/20 07:28 02/01/20 07:28 - General well developed, well nourished, no distress - Eyes PERRL - ENT normal pinna - Neck no masses - Respiratory normal expansion - Cardiovascular Rhythm: regular - Abdomen Abdomen: soft, non tender Assessment and Plan Assessment: Cholelithiasis Right quadrant pain We'll perform laparoscopic cholecystectomy
[2020-02-01] MEDS ORDERED: fentaNYL (PF) 50 MCG/ML 2 ML AMP ONE (08:33)
[2020-02-01] MEDS ORDERED: LIDOCAINE 1% INJ 10MG/ML (20 ML MDV) ONE (08:33)
[2020-02-01] MEDS ORDERED: GLYCOPYRROLATE 0.2 MG/ML 2 ML VIAL ONE (08:33)
[2020-02-01] MEDS ORDERED: NEOSTIGMINE 1 MG/ML 10 ML VIAL ONE (08:33)
[2020-02-01] MEDS ORDERED: PROPOFOL 10 MG/ML 20 ML VIAL IV ONE (08:33)
[2020-02-01] MEDS ORDERED: SUCCINYLCHOLINE CHLORIDE 100 MG/5 ML SYR IV ONE (08:33)
[2020-02-01] MEDS ORDERED: MIDAZOLAM 2 MG/2 ML VIAL ONE (08:33)
[2020-02-01] MEDS ORDERED: KETOROLAC 15 MG/ML 1 ML VIAL ONE (08:33)
[2020-02-01] MEDS ORDERED: ROCURONIUM 10 MG/ML (5 ML VIAL) IV ONE (08:33)
[2020-02-01] MEDS ORDERED: LIDOCAINE 1%-EPI 1:100,000 20 ML VIAL SQ ONE (08:54)
--- NOTE | 2020-02-01 09:21 | P.OP ---
Date of Procedure: 02/01/20 Preoperative Diagnosis: Cholelithiasis Postoperative Diagnosis: Cholelithiasis Procedure(s) Performed: Laparoscopic cholecystectomy Anesthesia: ELLE Surgeon: Mitesh Espitia Pathology: other (Gallbladder) Condition: stable Disposition: PACU Description of Procedure: The patient was placed on the operating table. The patient received a general endotracheal tube anesthesia. The patients abdomen was prepped and draped in the usual sterile fashion. Through an infraumbilical stab incision, the fascia of the anterior abdominal wall was grasped with a pair of Kochers and then the Veress needle was placed in the peritoneal cavity. Position of the Veress needle was confirmed with positive drop test. The abdomen was then insufflated. After adequate insufflation, the 10 mm trocar was placed in the peritoneal cavity. Following this the laparoscope was placed in the peritoneal cavity. The patient was placed in the head-up, right side up position and then a 5 mm trocar was placed in the right lateral and right subcostal position under direct visualization. A 8 mm trocar was placed in the epigastric position. The gallbladder was grasped in the fundus and infundibulum. Traction on the gallbladder was placed in the lateral and the cephalad positions. The triangle of Calot was visualized.. The cystic duct was bluntly dissected until the union of the cystic duct and common bile duct was seen. A critical view of safety was achieved. The cystic duct was then divided and sealed with the Harmonic scissors. A PDS Endoloop was then placed throughout the cystic duct stump. The cystic artery divided and sealed with the Harmonic scissors. The gallbladder was then removed from the liver bed using Harmonic scissors. The gallbladder was then extracted through the epigastric port site. Operative field was checked for any bleeding spots and Harmonic scissors was used to coagulate the liver bed. The abdomen was irrigated. The trocars were removed. The skin was closed using interrupted 3-0 Vicryl suture. Dermabond dressing were applied. The patient tolerated the procedure well.
[2020-02-01] MEDS: HYDROmorphone 0.5 MG/0.5 ML SYRINGE IVP PRN ×4 (09:27→09:48)
[2020-02-01 09:30] VITALS: TEMP 97.1
[2020-02-01] MEDS ORDERED: diphenhydrAMINE 50 MG/ML 1 ML VIAL IVP ONE (09:48)
[2020-02-01] MEDS ORDERED: SODIUM CHLORIDE 0.9% 1,000 ML IV ONE (09:59)
[2020-02-01] MEDS ORDERED: ONDANSETRON 4 MG/2 ML VIAL ONE (10:43)
[2020-02-01 10:49] VITALS: BP 115/70; PULSE 69; RESP 16
== END 2020-02-01 11:08 | disposition home or self-care (01) ==
LOC: OR 06:58
PROVIDERS: ATTEND Surgery
DX: K81.1 Chronic cholecystitis (principal); H40.9 Unspecified glaucoma; F41.9 Anxiety disorder, unspecified; F31.9 Bipolar disorder, unspecified; E16.2 Hypoglycemia, unspecified; Z87.891 Personal history of nicotine dependence; Z79.899 Other long term (current) drug therapy; Z98.890 Other specified postprocedural states
CPT/HCPCS: 81025; 88304; 47562; J2250; J1644; J1100; J2710; J0690; J2405; J2001; J3010; J1885; J0330; J2704; J1170

== ENCOUNTER 2020-02-01 19:08 | Emergency (ER) | payer OTHER ==
[2020-02-01] MEDS ORDERED: HYDROmorphone 0.5 MG/0.5 ML SYRINGE IVP STA ×2 (19:39→20:29)
[2020-02-01] MEDS ORDERED: ONDANSETRON 4 MG/2 ML VIAL IVP STA (19:39)
[2020-02-01] MEDS ORDERED: SODIUM CHLORIDE 0.9% 1,000 ML IV STA (19:39)
--- NOTE | 2020-02-01 19:45 | ED ---
General Adult HPI - General Source: patient, RN notes reviewed Mode of arrival: ambulatory <Burke Norris - Last Filed: 02/01/20 23:02> <Gini Martinez - Last Filed: 02/02/20 15:46> - General Chief complaint: Nausea/Vomiting/Diarrhea Stated complaint: Gallbladder surgery today, unable to eat Time Seen by Provider: 02/01/20 19:18 - History of Present Illness Initial comments: 34-year-old female presents to the emergency department for a chief complaint of upper abdominal pain. Patient had a cholecystectomy earlier today with Dr. Maria lance. Patient states after she went home she started to have severe pain. States that she is unable to keep down her pain medications. She is very nauseous and has had several episodes of vomiting. Patient reports that nothing is helping her pain.Patient has no other complaints at this time including shortness of breath, chest pain, headache, or visual changes. (Burke Norris) - Related Data Previous Rx's Medication Instructions Recorded HYDROcodone/APAP 5-325MG [Melvin 1 tab PO Q6HR PRN #10 tab 02/01/20 5-325] Ondansetron [Zofran ODT] 4 mg PO Q8HR PRN #15 tab 02/01/20 Allergies Allergy/AdvReac Type Severity Reaction Status Date / Time No Known Allergies Allergy Verified 02/01/20 22:26 Review of Systems ROS Other: All systems not noted in ROS Statement are negative. <Burke Norris - Last Filed: 02/01/20 23:02> ROS Other: All systems not noted in ROS Statement are negative. <Gini Martinez - Last Filed: 02/02/20 15:46> ROS Statement: Those systems with pertinent positive or pertinent negative responses have been documented in the HPI. Past Medical History Past Medical History: No Reported History Additional Past Medical History / Comment(s): glaucoma, hypoglycemic History of Any Multi-Drug Resistant Organisms: None Reported Past Surgical History: Ear Surgery Additional Past Surgical History / Comment(s): D&C x2, PROSTETHIC LENS TO LEFT EYE Past Anesthesia/Blood Transfusion Reactions: No Reported Reaction Past Psychological History: Anxiety, Bipolar, Depression Smoking Status: Former smoker Past Alcohol Use History: None Reported Past Drug Use History: Marijuana <Burke Norris - Last Filed: 02/01/20 23:02> General Exam General appearance: alert, in no apparent distress Head exam: Present: atraumatic, normocephalic, normal inspection Eye exam: Present: normal appearance, PERRL, EOMI. Absent: scleral icterus, conjunctival injection, periorbital swelling ENT exam: Present: normal exam, mucous membranes moist Neck exam: Present: normal inspection, full ROM. Absent: tenderness, meningismus, lymphadenopathy Respiratory exam: Present: normal lung sounds bilaterally. Absent: respiratory distress, wheezes, rales, rhonchi, stridor Cardiovascular Exam: Present: regular rate, normal rhythm, normal heart sounds. Absent: systolic murmur, diastolic murmur, rubs, gallop, clicks GI/Abdominal exam: Present: soft, tenderness (Generalized abdominal tenderness noted), normal bowel sounds, other (Laparoscopic incisions noted). Absent: distended, guarding, rebound, rigid Neurological exam: Present: alert <Burke Norris P - Last Filed: 02/01/20 23:02> Course Vital Signs 02/01/20 02/01/20 02/01/20 19:20 20:25 21:45 Temperature 100.2 F H 98.5 F 98.3 F Pulse Rate 57 L 55 L 64 Respiratory 18 16 16 Rate Blood Pressure 131/85 122/84 126/95 O2 Sat by Pulse 98 99 97 Oximetry 02/01/20 23:00 Temperature 98.6 F Pulse Rate 64 Respiratory 16 Rate Blood Pressure 126/95 O2 Sat by Pulse 97 Oximetry Medical Decision Making - Lab Data Result diagrams: 02/01/20 19:45 02/01/20 19:45 <Burke Norris P - Last Filed: 02/01/20 23:02> - Lab Data Result diagrams: 02/01/20 19:45 02/01/20 19:45 <Gini Martinez - Last Filed: 02/02/20 15:46> - Medical Decision Making Vitals are stable. CBC CMP is unremarkable. Urinalysis does show 3+ ketones, patient was given fluids. CT abdomen and pelvis showed moderate peritoneal fluid with mild pneumoperitoneum. Case was discussed with Dr. Espitia, it was felt that these findings are consistent with postop changes. Patient is feeling much better at this time. On reevaluation abdomen is soft and nonacute. She'll be given Zofran as well for nausea to help keep her pain medicines down. Tolerating orals at this time. (Burke Norris) I was available for consultation in the emergency department. The history and physical exam were done by the midlevel provider. I was consulted for this patients care. I reviewed the case with the midlevel provider and based on their presentation of the patient, I agree with the assessment, medical decision making and plan of care as documented. I discussed the patients care with Dr. Espitia. Patient pain controlled and will be discharged home at this time. Chart was dictated using [employer] dictation software. Attempts were made to correct any dictation errors however some typographical errors may persist. Patient was seen during a national state of emergency due to the Covid-19 pandemic. (Gini Martinez) - Lab Data Lab Results 02/01/20 02/01/20 02/01/20 Range/Units 19:45 19:45 19:45 WBC 9.3 (3.8-10.6) k/uL RBC 4.34 (3.80-5.40) m/uL Hgb 13.1 (11.4-16.0) gm/dL Hct 40.3 (34.0-46.0) % MCV 92.9 (80.0-100.0) fL MCH 30.1 (25.0-35.0) pg MCHC 32.4 (31.0-37.0) g/dL RDW 13.4 (11.5-15.5) % Plt Count 191 (150-450) k/uL Neutrophils % 84 % Lymphocytes % 12 % Monocytes % 2 % Eosinophils % 2 % Basophils % 0 % Neutrophils # 7.8 H (1.3-7.7) k/uL Lymphocytes # 1.1 (1.0-4.8) k/uL Monocytes # 0.2 (0-1.0) k/uL Eosinophils # 0.1 (0-0.7) k/uL Basophils # 0.0 (0-0.2) k/uL Sodium 136 L (137-145) mmol/L Potassium 4.9 (3.5-5.1) mmol/L Chloride 107 (98-107) mmol/L Carbon Dioxide 20 L (22-30) mmol/L Anion Gap 9 mmol/L BUN 11 (7-17) mg/dL Creatinine 0.66 (0.52-1.04) mg/dL Est GFR (CKD-EPI)AfAm >90 (>60 ml/min/1.73 sqM) Est GFR (CKD-EPI)NonAf >90 (>60 ml/min/1.73 sqM) Glucose 97 (74-99) mg/dL Plasma Lactic Acid Sonido (0.7-2.0) mmol/L Calcium 9.6 (8.4-10.2) mg/dL Total Bilirubin 0.9 (0.2-1.3) mg/dL AST 46 H (14-36) U/L ALT 22 (4-34) U/L Alkaline Phosphatase 60 (38-126) U/L Total Protein 7.8 (6.3-8.2) g/dL Albumin 5.0 (3.5-5.0) g/dL Amylase 40 (30-110) U/L Lipase 53 (23-300) U/L HCG, Qual Urine Color Yellow Urine Appearance Clear (Clear) Urine pH 6.5 (5.0-8.0) Ur Specific [place] 1.033 (1.001-1.035) Urine Protein Trace H (Negative) Urine Glucose (UA) Negative (Negative) Urine Ketones 3+ H (Negative) Urine Blood Negative (Negative) Urine Nitrite Negative (Negative) Urine Bilirubin Negative (Negative) Urine Urobilinogen <2.0 (<2.0) mg/dL Ur Leukocyte Esterase Trace H (Negative) Urine RBC 1 (0-5) /hpf Urine WBC 2 (0-5) /hpf Ur Squamous Epith Cells 8 H (0-4) /hpf Urine Mucus Few H (None) /hpf 02/01/20 02/01/20 Range/Units 19:45 19:45 WBC (3.8-10.6) k/uL RBC (3.80-5.40) m/uL Hgb (11.4-16.0) gm/dL Hct (34.0-46.0) % MCV (80.0-100.0) fL MCH (25.0-35.0) pg MCHC (31.0-37.0) g/dL RDW (11.5-15.5) % Plt Count (150-450) k/uL Neutrophils % % Lymphocytes % % Monocytes % % Eosinophils % % Basophils % % Neutrophils # (1.3-7.7) k/uL Lymphocytes # (1.0-4.8) k/uL Monocytes # (0-1.0) k/uL Eosinophils # (0-0.7) k/uL Basophils # (0-0.2) k/uL Sodium (137-145) mmol/L Potassium (3.5-5.1) mmol/L Chloride (98-107) mmol/L Carbon Dioxide (22-30) mmol/L Anion Gap mmol/L BUN (7-17) mg/dL Creatinine (0.52-1.04) mg/dL Est GFR (CKD-EPI)AfAm (>60 ml/min/1.73 sqM) Est GFR (CKD-EPI)NonAf (>60 ml/min/1.73 sqM) Glucose (74-99) mg/dL Plasma Lactic Acid Sonido 1.2 (0.7-2.0) mmol/L Calcium (8.4-10.2) mg/dL Total Bilirubin (0.2-1.3) mg/dL AST (14-36) U/L ALT (4-34) U/L Alkaline Phosphatase (38-126) U/L Total Protein (6.3-8.2) g/dL Albumin (3.5-5.0) g/dL Amylase (30-110) U/L Lipase (23-300) U/L HCG, Qual Not Detected Urine Color Urine Appearance (Clear) Urine pH (5.0-8.0) Ur Specific [place] (1.001-1.035) Urine Protein (Negative) Urine Glucose (UA) (Negative) Urine Ketones (Negative) Urine Blood (Negative) Urine Nitrite (Negative) Urine Bilirubin (Negative) Urine Urobilinogen (<2.0) mg/dL Ur Leukocyte Esterase (Negative) Urine RBC (0-5) /hpf Urine WBC (0-5) /hpf Ur Squamous Epith Cells (0-4) /hpf Urine Mucus (None) /hpf Disposition Is patient prescribed a controlled substance at d/c from ED?: No Time of Disposition: 23:03 <Burke Norris P - Last Filed: 02/01/20 23:02> <Gini Martinez - Last Filed: 02/02/20 15:46> Clinical Impression: Post-op pain Disposition: HOME SELF-CARE Condition: Good Instructions (If sedation given, give patient instructions): Acute Abdominal Pain (ED) Additional Instructions: Please take Zofran as needed for nausea. Take Melvin for pain. Follow-up with your surgeon. Return to the emergency room for worsening symptoms. Prescriptions: Ondansetron [Zofran ODT] 4 mg PO Q8HR PRN #15 tab PRN Reason: Nausea Referrals: Jeanette Gates MD [Primary Care Provider] - 1-2 days
[2020-02-01 19:56] LABS: Basophils % (A) 0 %; Eosinophils # (A) 0.1 k/uL (0-0.7); Eosinophils % (A) 2 %; HCT 40.3 % (34.0-46.0); HGB 13.1 gm/dL (11.4-16.0); Lymphocytes # (A) 1.1 k/uL (1.0-4.8); Lymphocytes % (A) 12 %; MCH 30.1 pg (25.0-35.0); MCHC 32.4 g/dL (31.0-37.0); MCV 92.9 fL (80.0-100.0); Mean Platelet Volume 10.2; Monocytes # (A) 0.2 k/uL (0-1.0); Monocytes % (A) 2 %; Neutrophils # (A) 7.8 k/uL (1.3-7.7); Neutrophils % (A) 84 %; Platelet Count 191 k/uL (150-450); RBC 4.34 m/uL (3.80-5.40); RDW 13.4 % (11.5-15.5); WBC 9.3 k/uL (3.8-10.6)
[2020-02-01 20:06] LABS: ALT 22 U/L (4-34); AST 46 U/L (14-36); African American GFR (CKD) >90 (>60 ml/min/1.73 sqM); Alkaline Phosphatase 60 U/L (38-126); Amylase 40 U/L (30-110); Anion Gap 9 mmol/L; Blood Urea Nitrogen 11 mg/dL (7-17); Calcium 9.6 mg/dL (8.4-10.2); Carbon Dioxide 20 mmol/L (22-30); Chloride 107 mmol/L (98-107); Glucose 97 mg/dL (74-99); Non-African American GFR(CKD) >90 (>60 ml/min/1.73 sqM); Potassium 4.9 mmol/L (3.5-5.1); Sodium 136 mmol/L (137-145); Total Bilirubin 0.9 mg/dL (0.2-1.3); Total Protein 7.8 g/dL (6.3-8.2)
[2020-02-01 20:57] LABS: Appearance,Urine Clear (Clear); Bilirubin,Urine Negative (Negative); Blood,Urine Negative (Negative); Color,Urine Yellow; Glucose,Urine (UA) Negative (Negative); Ketones,Urine 3+ (Negative); Leukocyte Esterase,Urine Trace (Negative); Mucus,Urine Few /hpf; Nitrite,Urine Negative (Negative); PH, Urine 6.5 (5.0-8.0); Protein,Urine Trace (Negative); RBC,Urine 1 /hpf (0-5); Specific Gravity,Urine 1.033 (1.001-1.035); Squamous Epithelial Cell,Urine 8 /hpf (0-4); Urobilinogen,Urine <2.0 mg/dL (<2.0); WBC,Urine 2 /hpf (0-5)
[2020-02-01 21:00] VITALS: RESP 16
[2020-02-01 22:12] VITALS: BP 126/95; PULSE 64
--- NOTE | 2020-02-01 22:22 | CT ---
EXAMINATION TYPE: CT abdomen pelvis w con DATE OF EXAM: 02/01/2020 COMPARISON: 07/09/2019 HISTORY: Abdominal pain and vomiting post cholecystectomy today. CT DLP: 529.1 mGycm Automated exposure control for dose reduction was used. TECHNIQUE: Helical acquisition of images was performed from the lung bases through the pelvis. CONTRAST: Performed without Oral Contrast and with IV Contrast, patient injected with 100ml mL of Iso kecia 300. FINDINGS: LUNG BASES: No acute findings. PERITONEAL CAVITY: (1) There is a mild-plus volume of pneumoperitoneum, but the patient is postcholecystectomy today. (2) There is mild volume of fluid in the gallbladder fossa and infrahepatic spaces, with mild right p aracolic gutter fluid, and a moderate volume of peritoneal fluid dependently within the pelvis. LIVER/GB: The intrahepatic biliary tree is unremarkable. Cholecystectomy clip is noted. The extrahepa tic biliary tree is unremarkable. No focal liver findings. PANCREAS: No significant abnormality is seen. SPLEEN: No significant abnormality is seen. ADRENALS: No significant abnormality is seen. KIDNEYS: No significant abnormality is seen. RETROPERITONEAL ADENOPATHY: None visualized REPRODUCTIVE ORGANS: No significant abnormality is seen URINARY BLADDER: No significant abnormality is seen. PELVIC ADENOPATHY: None visualized. OSSEOUS STRUCTURES: No significant abnormality is seen. BOWEL: No significant abnormality is seen. OTHER: No acute vascular findings. IMPRESSION: STATUS/POST CHOLECYSTECTOMY TODAY WITH MODERATE PERITONEAL FLUID AND MILD PNEUMOPERITONEUM.
[2020-02-01] MEDS ORDERED: KETOROLAC 15 MG/ML 1 ML VIAL IVP STA (22:49)
[2020-02-01 23:04] VITALS: TEMP 98.6
== END 2020-02-01 23:10 | disposition home or self-care (01) ==
LOC: EC 19:08
DX: G89.18 Other acute postprocedural pain (principal); R10.10 Upper abdominal pain, unspecified; R11.2 Nausea with vomiting, unspecified; K66.8 Other specified disorders of peritoneum; Z87.891 Personal history of nicotine dependence; Z90.49 Acquired absence of other specified parts of digestive tract
CPT/HCPCS: 36415; 80053; 82150; 83605; 83690; 85025; 81001; 84703; 74177; 99284; 96374; 96375 ×2; 96376; 96361; J2405; J1885; J1170; Q9967

== ENCOUNTER 2020-05-26 13:15 | Emergency (ER) | payer OTHER ==
[2020-05-26 13:19] VITALS: TEMP 97.7
[2020-05-26] MEDS ORDERED: MORPHINE SULFATE 4 MG/ML SYRINGE IV STA (14:09)
[2020-05-26] MEDS ORDERED: SODIUM CHLORIDE 0.9% 1,000 ML IV STA (14:09)
[2020-05-26 14:22] LABS: Basophils # (A) 0.1 k/uL (0-0.2); Basophils % (A) 1 %; Eosinophils # (A) 0.2 k/uL (0-0.7); Eosinophils % (A) 2 %; HGB 13.4 gm/dL (11.4-16.0); Lymphocytes # (A) 2.2 k/uL (1.0-4.8); Lymphocytes % (A) 30 %; MCHC 33.5 g/dL (31.0-37.0); MCV 92.5 fL (80.0-100.0); Mean Platelet Volume 9.4; Monocytes # (A) 0.3 k/uL (0-1.0); Monocytes % (A) 4 %; Neutrophils # (A) 4.3 k/uL (1.3-7.7); Neutrophils % (A) 60 %; Platelet Count 173 k/uL (150-450); RBC 4.33 m/uL (3.80-5.40); RDW 13.5 % (11.5-15.5); WBC 7.1 k/uL (3.8-10.6)
[2020-05-26 14:30] LABS: Appearance,Urine Clear (Clear); Bilirubin,Urine Negative (Negative); Blood,Urine Negative (Negative); Color,Urine Yellow; Glucose,Urine (UA) Negative (Negative); Ketones,Urine Negative (Negative); Leukocyte Esterase,Urine Negative (Negative); Nitrite,Urine Negative (Negative); PH, Urine 5.5 (5.0-8.0); Protein,Urine Negative (Negative); Specific Gravity,Urine 1.016 (1.001-1.035); Urobilinogen,Urine <2.0 mg/dL (<2.0)
[2020-05-26 14:38] LABS: ALT 9 U/L (4-34); AST 22 U/L (14-36); African American GFR (CKD) >90 (>60 ml/min/1.73 sqM); Albumin 4.4 g/dL (3.5-5.0); Alkaline Phosphatase 83 U/L (38-126); Anion Gap 7 mmol/L; Blood Urea Nitrogen 7 mg/dL (7-17); Calcium 9.2 mg/dL (8.4-10.2); Carbon Dioxide 23 mmol/L (22-30); Chloride 107 mmol/L (98-107); Glucose 101 mg/dL (74-99); Lipase 48 U/L (23-300); Non-African American GFR(CKD) >90 (>60 ml/min/1.73 sqM); Potassium 4.2 mmol/L (3.5-5.1); Sodium 137 mmol/L (137-145); Total Bilirubin 0.3 mg/dL (0.2-1.3); Total Protein 7.1 g/dL (6.3-8.2)
--- NOTE | 2020-05-26 14:38 | ED ---
General Adult HPI - General Chief complaint: Abdominal Pain Stated complaint: Abd Pain Time Seen by Provider: 05/26/20 13:23 Source: patient, RN notes reviewed, old records reviewed Mode of arrival: ambulatory Limitations: no limitations - History of Present Illness Initial comments: 34-year-old female patient to ED for evaluation of right upper quadrant/right rib pain. Symptoms have been ongoing for the last 3 days. She reports that the pain in the right lower rib region is slightly pleuritic in nature. She feels slightly short of breath. She does report being a smoker. She has been also having some mild coughing. She did have her gallbladder removed in February. She denies any vomiting but she was nauseous. She denies any other complaints. Systemic: Pt denies fatigue, fever/chills, rash. Pt denies weakness, night sweats, weight loss. Neuro: Pt denies headache, visual disturbances, syncope or pre-syncope. HEENT: Pt denies ocular discharge or irritation, otalgia, rhinorrhea, pharyngitis or notable lymphadenopathy. Cardiopulmonary: Pt denies heart palpitations, dyspnea on exertion. Abdominal/GI: Pt denies emesis, diarrhea. : Pt denies dysuria, burning w/ urination, frequency/urgency. Denies new onset urinary or bowel incontinence. MSK: Pt denies myalgia, loss of strength or function in extremities. Neuro: Pt denies new onset weakness, paresthesias. - Related Data Previous Rx's Medication Instructions Recorded Azithromycin [Zithromax Z-pack (6 0 mg PO DIRECTED #6 tab 05/26/20 tabs)] Allergies Allergy/AdvReac Type Severity Reaction Status Date / Time No Known Allergies Allergy Verified 05/26/20 15:14 Review of Systems ROS Statement: Those systems with pertinent positive or pertinent negative responses have been documented in the HPI. ROS Other: All systems not noted in ROS Statement are negative. Past Medical History Past Medical History: No Reported History Additional Past Medical History / Comment(s): glaucoma, hypoglycemic History of Any Multi-Drug Resistant Organisms: None Reported Past Surgical History: Cholecystectomy, Ear Surgery Additional Past Surgical History / Comment(s): D&C x2, PROSTETHIC LENS TO LEFT EYE Past Anesthesia/Blood Transfusion Reactions: No Reported Reaction Past Psychological History: Anxiety, Bipolar, Depression Smoking Status: Former smoker Past Alcohol Use History: None Reported Past Drug Use History: Marijuana General Exam - General Exam Comments Initial Comments: Constitutional: NAD, AOX3, Pt has pleasant affect. HEENT: NC/AT, trachea midline, neck supple, no lymphadenopathy. External ears appear normal, without discharge. Mucous membranes moist. Eyes PERRLA, EOM intact. There is no scleral icterus. No pallor noted. Cardiopulmonary: RRR, no murmurs, rubs or gallops, no JVD noted. Lungs CTAB in anterior and posterior valdivia. No peripheral edema. Abdominal exam: Abdomen soft and non-distended. Abdomen nontender to palpation. Mild tenderness in right lower rib region. Bowel sounds active in LLQ. No hepatosplenomegaly. No ecchymosis Neuro: CN II-XII grossly intact. No nuchal rigidity. MSK: No posterior calf tenderness bilaterally, homans sign negative bilaterally. Posterior tibialis and radial pulse +2 bilaterally. right lateral rib mildly tender to palpation. No skin changes. Sensation intact in upper and lower extremities. Full active ROM in upper and lower extremities, 5/5 stregnth. Limitations: no limitations Course Vital Signs 05/26/20 13:17 Temperature 97.7 F Pulse Rate 99 Respiratory 20 Rate Blood Pressure 126/80 O2 Sat by Pulse 98 Oximetry Medical Decision Making - Medical Decision Making 34-year-old female patient to ED for evaluation of right upper quadrant/right rib pain. Symptoms have been ongoing for the last 3 days. She reports that the pain in the right lower rib region is slightly pleuritic in nature. She feels slightly short of breath. She does report being a smoker. She has been also having some mild coughing. She did have her gallbladder removed in February. She denies any vomiting but she was nauseous. She denies any other complaints. Vital signs are stable, afebrile. Physical exam slight very mild tenderness in the right lateral rib region. Laboratory investigations are unremarkable. CT chest angiography displayed no evidence of pulmonary embolism. Mild pulmonary additional infiltrates in subsegmental atelectasis. CT abdomen and pelvis was negative for acute process within the abdomen and the pelvis. Mild subsegmental atelectasis at the lung bases. EKG is nonischemic. Patient will be treated with azithromycin for community-acquired pneumonia. She'll follow up with primary care provider and return to ER with any worsening symptoms. Case discussed with Dr. Good. - Lab Data Result diagrams: 05/26/20 14:13 05/26/20 14:13 Lab Results 05/26/20 05/26/20 05/26/20 Range/Units 14:13 14:13 14:13 WBC 7.1 (3.8-10.6) k/uL RBC 4.33 (3.80-5.40) m/uL Hgb 13.4 (11.4-16.0) gm/dL Hct 40.0 (34.0-46.0) % MCV 92.5 (80.0-100.0) fL MCH 31.0 (25.0-35.0) pg MCHC 33.5 (31.0-37.0) g/dL RDW 13.5 (11.5-15.5) % Plt Count 173 (150-450) k/uL MPV 9.4 Neutrophils % 60 % Lymphocytes % 30 % Monocytes % 4 % Eosinophils % 2 % Basophils % 1 % Neutrophils # 4.3 (1.3-7.7) k/uL Lymphocytes # 2.2 (1.0-4.8) k/uL Monocytes # 0.3 (0-1.0) k/uL Eosinophils # 0.2 (0-0.7) k/uL Basophils # 0.1 (0-0.2) k/uL Sodium 137 (137-145) mmol/L Potassium 4.2 (3.5-5.1) mmol/L Chloride 107 (98-107) mmol/L Carbon Dioxide 23 (22-30) mmol/L Anion Gap 7 mmol/L BUN 7 (7-17) mg/dL Creatinine 0.57 (0.52-1.04) mg/dL Est GFR (CKD-EPI)AfAm >90 (>60 ml/min/1.73 sqM) Est GFR (CKD-EPI)NonAf >90 (>60 ml/min/1.73 sqM) Glucose 101 H (74-99) mg/dL Plasma Lactic Acid Sonido (0.7-2.0) mmol/L Calcium 9.2 (8.4-10.2) mg/dL Total Bilirubin 0.3 (0.2-1.3) mg/dL AST 22 (14-36) U/L ALT 9 (4-34) U/L Alkaline Phosphatase 83 (38-126) U/L Troponin I (0.000-0.034) ng/mL Total Protein 7.1 (6.3-8.2) g/dL Albumin 4.4 (3.5-5.0) g/dL Lipase 48 (23-300) U/L Urine Color Yellow Urine Appearance Clear (Clear) Urine pH 5.5 (5.0-8.0) Ur Specific [place] 1.016 (1.001-1.035) Urine Protein Negative (Negative) Urine Glucose (UA) Negative (Negative) Urine Ketones Negative (Negative) Urine Blood Negative (Negative) Urine Nitrite Negative (Negative) Urine Bilirubin Negative (Negative) Urine Urobilinogen <2.0 (<2.0) mg/dL Ur Leukocyte Esterase Negative (Negative) Urine HCG, Qual (Not Detectd) Coronavirus (PCR) (Not Detectd) 05/26/20 05/26/20 05/26/20 Range/Units 14:13 14:13 14:13 WBC (3.8-10.6) k/uL RBC (3.80-5.40) m/uL Hgb (11.4-16.0) gm/dL Hct (34.0-46.0) % MCV (80.0-100.0) fL MCH (25.0-35.0) pg MCHC (31.0-37.0) g/dL RDW (11.5-15.5) % Plt Count (150-450) k/uL MPV Neutrophils % % Lymphocytes % % Monocytes % % Eosinophils % % Basophils % % Neutrophils # (1.3-7.7) k/uL Lymphocytes # (1.0-4.8) k/uL Monocytes # (0-1.0) k/uL Eosinophils # (0-0.7) k/uL Basophils # (0-0.2) k/uL Sodium (137-145) mmol/L Potassium (3.5-5.1) mmol/L Chloride (98-107) mmol/L Carbon Dioxide (22-30) mmol/L Anion Gap mmol/L BUN (7-17) mg/dL Creatinine (0.52-1.04) mg/dL Est GFR (CKD-EPI)AfAm (>60 ml/min/1.73 sqM) Est GFR (CKD-EPI)NonAf (>60 ml/min/1.73 sqM) Glucose (74-99) mg/dL Plasma Lactic Acid Sonido 1.1 (0.7-2.0) mmol/L Calcium (8.4-10.2) mg/dL Total Bilirubin (0.2-1.3) mg/dL AST (14-36) U/L ALT (4-34) U/L Alkaline Phosphatase (38-126) U/L Troponin I <0.012 (0.000-0.034) ng/mL Total Protein (6.3-8.2) g/dL Albumin (3.5-5.0) g/dL Lipase (23-300) U/L Urine Color Urine Appearance (Clear) Urine pH (5.0-8.0) Ur Specific [place] (1.001-1.035) Urine Protein (Negative) Urine Glucose (UA) (Negative) Urine Ketones (Negative) Urine Blood (Negative) Urine Nitrite (Negative) Urine Bilirubin (Negative) Urine Urobilinogen (<2.0) mg/dL Ur Leukocyte Esterase (Negative) Urine HCG, Qual Not Detected (Not Detectd) Coronavirus (PCR) (Not Detectd) 05/26/20 Range/Units 14:35 WBC (3.8-10.6) k/uL RBC (3.80-5.40) m/uL Hgb (11.4-16.0) gm/dL Hct (34.0-46.0) % MCV (80.0-100.0) fL MCH (25.0-35.0) pg MCHC (31.0-37.0) g/dL RDW (11.5-15.5) % Plt Count (150-450) k/uL MPV Neutrophils % % Lymphocytes % % Monocytes % % Eosinophils % % Basophils % % Neutrophils # (1.3-7.7) k/uL Lymphocytes # (1.0-4.8) k/uL Monocytes # (0-1.0) k/uL Eosinophils # (0-0.7) k/uL Basophils # (0-0.2) k/uL Sodium (137-145) mmol/L Potassium (3.5-5.1) mmol/L Chloride (98-107) mmol/L Carbon Dioxide (22-30) mmol/L Anion Gap mmol/L BUN (7-17) mg/dL Creatinine (0.52-1.04) mg/dL Est GFR (CKD-EPI)AfAm (>60 ml/min/1.73 sqM) Est GFR (CKD-EPI)NonAf (>60 ml/min/1.73 sqM) Glucose (74-99) mg/dL Plasma Lactic Acid Sonido (0.7-2.0) mmol/L Calcium (8.4-10.2) mg/dL Total Bilirubin (0.2-1.3) mg/dL AST (14-36) U/L ALT (4-34) U/L Alkaline Phosphatase (38-126) U/L Troponin I (0.000-0.034) ng/mL Total Protein (6.3-8.2) g/dL Albumin (3.5-5.0) g/dL Lipase (23-300) U/L Urine Color Urine Appearance (Clear) Urine pH (5.0-8.0) Ur Specific [place] (1.001-1.035) Urine Protein (Negative) Urine Glucose (UA) (Negative) Urine Ketones (Negative) Urine Blood (Negative) Urine Nitrite (Negative) Urine Bilirubin (Negative) Urine Urobilinogen (<2.0) mg/dL Ur Leukocyte Esterase (Negative) Urine HCG, Qual (Not Detectd) Coronavirus (PCR) Not Detected (Not Detectd) - EKG Data -: EKG Interpreted by Me (and Dr. Good ) EKG Comments: Ventricular rate 77, TX interval 156, QRS 70, QT/QTC 380/430. Normal sinus rhythm with premature atrial complexes. Otherwise normal EKG. No concern for acute ischemia. Disposition Clinical Impression: Pneumonia Disposition: HOME SELF-CARE Condition: Stable Instructions (If sedation given, give patient instructions): Pneumonia (ED) Additional Instructions: Follow up with PCP tomorrow. Take antibiotics as directed. Return to ED with any worsening symptoms. Prescriptions: Azithromycin [Zithromax Z-pack (6 tabs)] 0 mg PO DIRECTED #6 tab Is patient prescribed a controlled substance at d/c from ED?: No Referrals: Jeanette Gates MD [Primary Care Provider] - 1-2 days
--- NOTE | 2020-05-26 15:34 | CT ---
EXAMINATION TYPE: CT abdomen pelvis w con DATE OF EXAM: 05/26/2020 COMPARISON: 02/01/2020 HISTORY: RUQ pain CT DLP: 625.9 mGycm Automated exposure control for dose reduction was used. CONTRAST: Performed with IV Contrast, patient injected with 100 mL of Isovue 370. There is some atelectasis at the lung bases. Heart size is normal. There is no pericardial effusion. Liver spleen pancreas stomach appear normal. Bile ducts are not dilated. There are clips from cholecy stectomy. There is no adrenal mass. There is normal contrast opacification of the kidneys. There is no hydronep hrosis. Delayed images show normal renal excretion. There is no retroperitoneal adenopathy. Bladder d istends smoothly. There is no inguinal hernia. Uterus is anteverted. There is no free fluid in the pe lvis. There is no evidence of a pelvic mass. There is 2 cm cyst on the left ovary. Appendix is partly seen and appears normal. There is no mesenteric edema. There is no ascites or free air. There is no bowel obstruction lumbar v ertebra have normal spacing and alignment. Posterior elements are intact bony pelvis is intact. Hip j oints are intact. IMPRESSION: Negative CT scan abdomen and pelvis. Mild subsegmental atelectasis at the lung bases. No adverse dietrich ge.
--- NOTE | 2020-05-26 15:39 | CT ---
EXAMINATION TYPE: CT chest angio for PE DATE OF EXAM: 05/26/2020 COMPARISON: None HISTORY: dyspnea on exertion CT DLP: 219 mGycm Automated exposure control for dose reduction was used. CONTRAST: Performed with IV Contrast, patient injected with 100 mL of Isovue 370. There are 3-D post processed images. There is subpleural coarse interstitial infiltrate in the posterior lung validvia. There is subsegmenta l atelectasis at the lung bases. There is no pleural effusion. Heart size is normal. There is no francisca cardial effusion. There is no mediastinal adenopathy. Thoracic aorta is intact. There is no aneurysm or dissection. There is normal contrast opacification of the pulmonary arteries. There are no filling defects. IMPRESSION: No evidence of pulmonary embolism. Mild pulmonary interstitial infiltrates and subsegmental atelectas is.
[2020-05-26] MEDS ORDERED: cefTRIAXone IN SWFI 1,000 MG/10 ML SYRINGE IVP STA (15:47)
[2020-05-26] MEDS ORDERED: AZITHROMYCIN 500 MG in SODIUM CHLORIDE 0.9% 250 ML IVPB STA (15:47)
[2020-05-26] MEDS ORDERED: KETOROLAC 15 MG/ML 1 ML VIAL IVP STA (16:25)
[2020-05-26 16:35] VITALS: BP 123/81; PULSE 78; RESP 16
== END 2020-05-26 17:08 | disposition home or self-care (01) ==
LOC: EC 13:15
DX: J18.9 Pneumonia, unspecified organism (principal); J98.11 Atelectasis; R91.8 Other nonspecific abnormal finding of lung field; R11.0 Nausea; Z20.828 Contact with and (suspected) exposure to other viral communicable diseases; Z90.49 Acquired absence of other specified parts of digestive tract; Z87.891 Personal history of nicotine dependence
CPT/HCPCS: 36415; 93005; 80053; 83605; 83690; 84484; 85025; 81003; 81025; 87635; 71275; 74177; 99285; 96365; 96375 ×3; 96361; J2270; J0456; J0696; J1885; Q9967

== ENCOUNTER 2020-12-02 19:54 | Emergency (ER) | payer OTHER ==
[2020-12-02 20:11] VITALS: BP 117/81; PULSE 99; RESP 20; TEMP 98.2
[2020-12-02] MEDS ORDERED: SULFAMETHOX-TMP 800-160MG 1 EACH TAB PO STA (20:23)
--- NOTE | 2020-12-02 20:24 | ED ---
Skin/Abscess/FB HPI - General Chief complaint: Skin/Abscess/Foreign Body Stated complaint: Poss bug bite Time Seen by Provider: 12/02/20 20:10 Source: patient, family, RN notes reviewed Mode of arrival: ambulatory Limitations: no limitations - History of Present Illness Initial comments: 35-year-old female presents emergency Department chief complaint of lump on her right shoulder. Patient states started a few days ago increasing pain, swelling or armpit. Patient states that she's had no prior skin infections no fevers or chills she states it started as a small pimple in which she states she tried to pop. - Related Data Previous Rx's Medication Instructions Recorded Azithromycin [Zithromax Z-pack (6 0 mg PO DIRECTED #6 tab 05/26/20 tabs)] Sulfamethox-Tmp 800-160Mg [Bactrim 1 each PO Q12HR #20 tab 12/02/20 Ds] Allergies Allergy/AdvReac Type Severity Reaction Status Date / Time No Known Allergies Allergy Verified 12/02/20 20:11 Review of Systems ROS Statement: Those systems with pertinent positive or pertinent negative responses have been documented in the HPI. ROS Other: All systems not noted in ROS Statement are negative. Past Medical History Past Medical History: No Reported History Additional Past Medical History / Comment(s): glaucoma, hypoglycemic History of Any Multi-Drug Resistant Organisms: None Reported Past Surgical History: Cholecystectomy, Ear Surgery, Hysterectomy Additional Past Surgical History / Comment(s): D&C x2, PROSTETHIC LENS TO LEFT EYE Past Anesthesia/Blood Transfusion Reactions: No Reported Reaction Past Psychological History: Anxiety, Bipolar, Depression Smoking Status: Former smoker Past Alcohol Use History: None Reported Past Drug Use History: Marijuana General Exam Limitations: no limitations General appearance: alert, in no apparent distress Head exam: Present: atraumatic, normocephalic, normal inspection Respiratory exam: Present: normal lung sounds bilaterally. Absent: respiratory distress, wheezes, rales, rhonchi, stridor Cardiovascular Exam: Present: regular rate, normal rhythm, normal heart sounds. Absent: systolic murmur, diastolic murmur, rubs, gallop, clicks Extremities exam: Present: other (Right shoulder there is a small pustule erythema,tendernesswithintherightaxillalymphnodespalpable) Course Vital Signs 12/02/20 20:07 Temperature 98.2 F Pulse Rate 99 Respiratory 20 Rate Blood Pressure 117/81 O2 Sat by Pulse 97 Oximetry Medical Decision Making - Medical Decision Making Patient is a small early abscess, cellulitis to changes to her right shoulder was started on antibiotics initial dose given return parameters discussed. Disposition Clinical Impression: Abscess of right arm Disposition: HOME SELF-CARE Condition: Stable Instructions (If sedation given, give patient instructions): Abscess (ED) Additional Instructions: Please return to the Emergency Department if symptoms worsen or any other concerns. Prescriptions: Sulfamethox-Tmp 800-160Mg [Bactrim Ds] 1 each PO Q12HR #20 tab Is patient prescribed a controlled substance at d/c from ED?: No Referrals: Jeanette Gates MD [Primary Care Provider] - 1-2 days Time of Disposition: 20:24
== END 2020-12-02 20:29 | disposition home or self-care (01) ==
LOC: EC 19:54
DX: L02.413 Cutaneous abscess of right upper limb (principal); L03.113 Cellulitis of right upper limb; F12.90 Cannabis use, unspecified, uncomplicated; Z87.891 Personal history of nicotine dependence
CPT/HCPCS: 99283